=== PATIENT | female | born 1990 | race Caucasian/White ===

== ENCOUNTER 2023-07-02 21:05 | Emergency (ER) | payer OTHER, SELFPAY ==
[2023-07-02 21:05] VITALS: BP 147/85; PULSE 109; RESP 18; TEMP 36.6; O2SAT 97
--- NOTE | 2023-07-02 21:23 | ED.GENADULT ---
HPI - General Adult General Chief complaint: Psychiatric Symptoms Stated complaint: SI Time Seen by Provider: 07/02/23 21:14 History of Present Illness HPI narrative: This is a 32-year-old female presenting for suicidal ideation. Patient has history of bipolar disorder for last month and half is pending a depressive episode. She feels like she will never get out of this episode and there is no hope. Patient was at her house holding a firearm to her head when her son and mother started banging on the door. She then came to the hospital for further evaluation. Patient was last hospitalized for mental illness July last year. Patient says she has been taking her medications as instructed. patient drinks a large bottle of wine on a daily basis has admits to use today. Denies drug use. Compliant with her psychiatric medications. No physical complaints this time. Related Data Home Medications Medication Instructions Recorded Confirmed aripiprazole 15 mg tablet 15 mg PO DAILY 07/02/23 07/02/23 lamotrigine 100 mg tablet 150 mg PO BID 07/02/23 07/02/23 lisdexamfetamine 70 mg capsule 70 mg PO DAILY 07/02/23 07/02/23 (Vyvanse) lithium carbonate 150 mg capsule 150 mg PO BID 07/02/23 07/02/23 propranolol 20 mg tablet 20 mg PO DAILY 07/02/23 07/02/23 Allergies Allergy/AdvReac Type Severity Reaction Status Date / Time No Known Allergies Allergy Verified 07/02/23 21:41 [facility] Past Medical History Medical History Bipolar 1 disorder, depressed Social History Social History Substance use type: prescription drug Exam Narrative: APPEARANCE: No apparent distress. A&O x3 Head: atraumatic. EYES: EOMI, NOSE: Atraumatic NECK: Trachea midline RESPIRATORY: No increased rate of breathing CARDIOVASCULAR: RRR, ABDOMINAL: Non-distended MUSCULOSKELETAl: No obvious deformities NEURO: Alert. Moving 4/4 extremities SKIN:: Warm, dry. Normal color PSYCHIATRIC: Tearful Course Vital Signs Vital signs: Vital Signs Temperature 97.8 F 07/02/23 21:05 Pulse Rate 109 H 07/02/23 21:05 Respiratory Rate 18 07/02/23 21:05 Blood Pressure 147/85 H 07/02/23 21:05 Pulse Oximetry 97 07/02/23 21:05 Oxygen Delivery Room Air 07/02/23 21:05 Temperature 97.5 F L 07/03/23 04:35 Pulse Rate 96 07/03/23 04:35 Respiratory Rate 20 07/03/23 04:35 Blood Pressure 115/59 L 07/03/23 04:35 Pulse Oximetry 97 07/03/23 04:35 Oxygen Delivery Room Air 07/03/23 04:35 Medical Decision Making MDM Narrative Medical decision making narrative: -Course: 32-year-old female with bipolar disorder presenting for suicidal ideation. Patient was holding a gun to her head earlier. Clear and present danger order has been placed in the EMR and authorities notified. Screening psychiatric lab work has been obtained. Patient medically clear for crisis evaluation. patient has been accepted to [facility] by Dr. Markel Barajas. 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 Does not over last day she went without drinking alcohol. Uses a vape pen. Denies drug use. 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 -Independent interpretation of studies: UDS positive for amphetamines. Patient is on Vyvanse. alcohol level 22 -Discussion of Management/Consultants: Crisis team -Shared decision making / Disposition: [facility] Vital Signs Vital Signs: Vital Signs Temperature 97.8 F 07/02/23 21:05 Pulse Rate 109 H 07/02/23 21:05 Respiratory Rate 18 07/02/23 21:05 Blood Pressure 147/85 H 07/02/23 21:05 Pulse Oximetry 97 07/02/23 21:05 Oxygen Delive
[2023-07-02 21:36] LABS: Basophils Absolute Auto 0.07 K/mm3 (0.00-0.10); Basophils Percent Auto 0.6 % (0.0-1.0); Eosinophils Absolute Auto 0.29 K/mm3 (0.02-0.50); Eosinophils Percent Auto 2.5 % (1.0-6.0); Hematocrit 39.1 % (35.0-49.0); Hemoglobin 12.2 g/dL (12.0-15.0); Immature Granulocyte Absolute 0.08 K/mm3 (0.00-0.00); Immature Granulocyte Percent A 0.7 % (0.0-0.0); Lymphocytes Absolute Auto 2.54 K/mm3 (1.10-4.50); Lymphocytes Percent Auto 21.6 % (18.0-42.0); Mean Corpuscular HGB Conc 31.2 g/dL (32-36); Mean Corpuscular Volume 83.4 fL (78.0-102.0); Mean Platelet Volume 9.2 fl (9.2-11.8); Monocytes Absolute Auto 0.63 K/mm3 (0.10-0.90); Monocytes Percent Auto 5.4 % (2.0-11.0); Neutrophils Absolute Auto 8.14 K/mm3 (1.70-7.20); Neutrophils Percent Auto 69.2 % (50.0-70.0); Platelet Count Result 404 K/mm3 (150-420); Red Blood Count 4.69 M/mm3 (4.20-5.40); Red Cell Distribution Width 12.8 % (11.6-14.4); White Blood Count 11.8 K/mm3 (4.8-10.8)
[2023-07-02 21:42] LABS: Appearance Urine Clear (Clear); Bilirubin Urine Negative (Negative); Blood Urine Negative (Negative); Color Urine Light Yellow (Yellow); Glucose Urine UA Negative (Negative); Ketones Urine Negative (Negative); Leukocyte Esterase Ur Negative LEU/UL (Negative); Nitrate Urine Negative (Negative); Protein Urine Negative (Negative); Specific Grav Ur 1.015 (1.010-1.020); Urobilinogen Urine 0.2 mg/dL (0.2-1.0)
[2023-07-02 21:46] LABS: Add Urine Microscopic? NO
--- NOTE | 2023-07-02 21:47 | PC.NURSE ---
Addendum entered by Florencio Wolff RN 07/02/23 21:48: At 2114, pt changed into hospital safe scrubs and belongings placed in a locked room. All nonessential equipment removed from pt room. Original Note: 2114
[2023-07-02 21:49] LABS: Amphetamine Screen Urine Positive (Negative); Barbiturate Screen Urine Negative (Negative); Benzodiazepines Screen Urine Negative (Negative); Cannabinoid Screen Urine Negative (Negative); Cocaine Screen Urine Negative (Negative); Methadone Screen Urine Negative (Negative); Opiate Screen Urine Negative (Negative); Phencyclidine Screen Urine Negative (Negative)
[2023-07-02 22:01] LABS: Alanine Aminotransferase 52 U/L (14-59); Albumin Level 3.6 g/dL (3.4-5.0); Alkaline Phosphatase 114 U/L (46-116); Anion Gap 12 mmol/L (8-16); Aspartate Amino Transferase 34 U/L (15-37); Bilirubin,Total 0.3 mg/dL (0.00-1.00); Blood Urea Nitrogen 7 mg/dL (7-18); Calcium 8.8 mg/dL (8.5-10.1); Carbon Dioxide 25 mmol/L (21-32); Chloride 103 mmol/L (98-108); Estimated CRCL calculation 116 ml/min; Estimated Glomerular Filt Rate > 60; Ethanol 22 mg/dL (0-6); Glucose 115 mg/dL (70-99); Osmolality Calculated 289 mOsm/kg (285-295); Potassium 3.9 mmol/L (3.5-5.1); Salicylate 1.2 mg/dL (2.8-20.0); Sodium 140 mmol/L (136-145); Thyroid Stimulating Hormone 2.87 uIU/mL (0.36-3.74); Total Protein 7.5 g/dL (6.4-8.2)
[2023-07-02 22:03] LABS: Acetaminophen < 2 ug/mL (10-30)
[2023-07-02 22:14] LABS: SARS-CoV-2 RNA PCR Negative (Negative)
[2023-07-02 22:15] LABS: Influenza A QL RT-PCR Negative (Negative); Influenza B QL RT-PCR Negative (Negative); RSV RNA, RT-PCR Negative (Negative)
[2023-07-02 22:43] VITALS: BP 133/81; PULSE 98; RESP 18; TEMP 37.1; O2SAT 98
[2023-07-03 02:39] VITALS: BP 122/60; PULSE 104; RESP 20; TEMP 36.8; O2SAT 98
--- NOTE | 2023-07-03 03:16 | PC.NURSE ---
Spoke with Intake at [facility] who is requesting we add on a urine for the patient and fax the results over to them.
[2023-07-03 03:20] LABS: Pregnancy On Board Control Positive; Urine Pregnancy Test Negative
--- NOTE | 2023-07-03 04:08 | PC.NURSE ---
1618 Urine preg test results faxed to [facility]
--- NOTE | 2023-07-03 04:24 | PC.NURSE ---
Attempted to call [facility] for transport for the patient to [facility] and they are unable to transport tonight. Will try [facility]
[2023-07-03 04:35] VITALS: BP 115/59; PULSE 96; RESP 20; TEMP 36.4; O2SAT 97
[2023-07-06 17:17] LABS: Lithium <0.15 mmol/L (0.60-1.20)
== END 2023-07-03 04:54 ==
PROVIDERS: Emergency Provider Emergency Medicine; PCP Family Medicine
DX: F31.9 Bipolar disorder, unspecified (principal); R45.851 Suicidal ideations; Z20.822 Contact with and (suspected) exposure to COVID-19
CPT/HCPCS: 36415; 80053; 80178; 80307; 81003; 81025; 84443; 85025; 87637; 99285

== ENCOUNTER 2023-12-24 08:05 | Emergency (ER) | payer OTHER, SELFPAY ==
[2023-12-24 08:10] VITALS: BP 142/97; PULSE 114; RESP 20; TEMP 36.3; O2SAT 98
--- NOTE | 2023-12-24 08:30 | ED.PSYCH ---
HPI - Psych General Chief Complaint: Psychiatric Symptoms Stated Complaint: Bipolar Time Seen by Provider: 12/24/23 08:29 Source: patient and family Mode of arrival: ambulatory Limitations: no limitations History of Present Illness HPI Narrative: 33 years old white female with history of bipolar on Paxil and Vyvanse did not take her bipolar medication for a while, came to the emergency room by private car complaining of involuntary movement involving upper and lower extremity, facial muscles and mouth. Patient denies any fever, chills, nausea, vomiting any suicidal or homicidal ideation. Scheduled to see her psychiatrist tomorrow. The above symptoms started last night could not sleep Related Data Home Medications Medication Instructions Recorded Confirmed aripiprazole 15 mg tablet 15 mg PO DAILY 07/02/23 07/02/23 lamotrigine 100 mg tablet 150 mg PO BID 07/02/23 07/02/23 lisdexamfetamine 70 mg capsule 70 mg PO DAILY 07/02/23 12/24/23 (Vyvanse) lithium carbonate 150 mg capsule 150 mg PO BID 07/02/23 07/02/23 propranolol 20 mg tablet 20 mg PO DAILY 07/02/23 07/02/23 paroxetine HCl 30 mg tablet 30 mg PO HS 12/24/23 12/24/23 Allergies Allergy/AdvReac Type Severity Reaction Status Date / Time No Known Allergies Allergy Verified 12/24/23 08:19 Review of Systems Review of Systems: All systems reviewed & are unremarkable except as noted in HPI and below PMFSH Past Medical History Medical History Bipolar 1 disorder, depressed Social History Social History Substance use type: does not use Exam Narrative: General appearance: Well-developed, well-nourished, restlessness Skin: Normal color Head: Normocephalic, nontraumatic Eyes: Clear conjunctiva ENT: Oropharynx normal, ears normal, nose normal Neck: Supple, nontender Chest and respiratory: Airway patent, no respiratory distress, no accessory muscle use Heart: Regular rate/rhythm Abdomen: Soft, nontender, no organomegaly, quiet bowel sounds Vascular: Normal peripheral pulses, normal capillary refill. Musculoskeletal: him in a tree muscle movement of the upper and lower extremity, opening and closing mouth intermittently without control of, twitches face without control Neurologic: Alert and oriented ?3, PIER HAND is normal as tested, no gross motor deficit Course Consultations Consultation #1: Dr. Dumont, patient's psychiatrist who requested to asked patient to go to his clinic now Date: 12/24/23 Time: 12:46 Vital Signs Vital signs: Vital Signs Temperature 36.3 C L 12/24/23 08:10 Pulse Rate 114 H 12/24/23 08:10 Respiratory Rate 20 12/24/23 08:10 Blood Pressure 142/97 H 12/24/23 08:10 Pulse Oximetry 98 12/24/23 08:10 Oxygen Delivery Room Air 12/24/23 08:10 Temperature 36.3 C L 12/24/23 08:10 Pulse Rate 114 H 12/24/23 08:10 Respiratory Rate 20 12/24/23 08:10 Blood Pressure 142/97 H 12/24/23 08:10 Pulse Oximetry 98 12/24/23 08:10 Oxygen Delivery Room Air 12/24/23 08:10 MDM - Psych MDM Narrative Medical decision making narrative: differential diagnosis include anxiety, panic attack, major depression, tardive dyskinesia, medication side effect Patient received 1 mg of Ativan orally Patient was referred to see her psychiatrist today. Differential Diagnosis Differential diagnosis: Likely other ( as above) Medical Records Attestation: I reviewed the patient's medical records. Critical Care Time Critical Care Time Critical Care Time: No Discharge Plan Discharge Clinical Impression: Anxiety-like symptoms, Bipolar 1 disorder
[2023-12-24] MEDS: LORazepam (*CRX) 0.5 MG TABLET 1 MG PO (08:42)
== END 2023-12-24 09:20 | disposition home or self-care (01) ==
PROVIDERS: Emergency Provider Emergency Medicine; PCP Family Medicine
DX: F41.9 Anxiety disorder, unspecified (principal); F31.9 Bipolar disorder, unspecified
CPT/HCPCS: 99284; A9270

== ENCOUNTER 2024-11-20 09:19 | Outpatient (CLI) | payer OTHER, SELFPAY ==
--- OUTSIDE RECORDS SUMMARY | 2024-11-20 09:25 | XMS_ITS | Clinical Summary ---
Author Organization [facility] Address [address] [place] [address] Care Team Providers Care [employer] Observer Name Role Phone Dheeraj Lim MD Primary Care Provider [phone] Source Comments [facility],non-owned Affiliates and Associated Physician Practices is amultiple site organization consisting of ambulatory clinics and hospital sitesin [place], [place], [place] and [place]. This disclosure is being madepursuant to the Care Everywhere program and may not contain all information available regarding this patient. Last updated 18.[employer] (Inspect Manager) [facility] Allergies No known active allergies Medications * This document contains information received from the source organization and may not represent a complete record from that organization. * Be aware that medications may not be up to date on this document. Alwaysverify current medications with the patient. No known medications Active Problems Problem Noted Date Diagnosed Date Bipolar affective disorder, current episode obinna re 07/26/2022 Suicidal ideation 07/25/2022 Social History Tobacco Use Types Packs/Day Years Used Date Smoking Tobacco: Never Smokeless Tobacco: Never Tobacco Cessation:Counseling Given: Not Answered Alcohol Use Standard Drinks/Week Comments Yes 1 (1 standard drink = 0.6 oz pur e alcohol) glass of wine a month AUDIT-C Answer Date Recorded Q1: How often do you have a drink containing alc ohol? Monthly or less 07/25/2022 Q2: How many drinks containi ng alcohol do you have on a typical day when you are drinking? 1 or 2 07/25/2022 Q3: How often do you have si x or more drinks on one occasion? Never 07/25/2022 Overall Financial Resource Strain (CARDIA) Answe r Date Recorded How hard is it for you to pa y for the very basics like food, housing, medical care, and heating? Not hard at all 07/25/2022 [facility] [place] [facility] - Occupational Stress Questionnaire Answer Date Recorded Do you feel stress - tense, restless, nervous, or anxious, or unable to sleep at night because your mind is troubled all the time - these days? Rather much 07/25/2022 Hunger Vital Sign Answer Date Recorded Within the past 12 months, y ou worried that your food would run out before you got the money to buy more. Never true 07/26/19 23 Within the past 12 months, t he food you bought just didn't last and you didn't have money to get more. Never true 07/25/2022 PRAPARE - Transportation Answer Date Re corded In the past 12 months, has l ack of transportation kept you from medical appointments or from getting medications? No 07/14 In the past 12 months, has l ack of transportation kept you from meetings, work, or from getting things needed for daily living? No 07/25/2022 Housing Stability Vital Sign Answer Mike e Recorded In the last 12 months, was t here a time when you were not able to pay the mortgage or rent on time? No 07/25/2022 In the last 12 months, how many places have you lived? 1 07/25/2022 In the last 12 months, was t here a time when you did not have a steady place to sleep or slept in a fdc (including now)? No 07/25/2022 Comments No Sex and Gender Information Value Date Recorded Sex Assigned at Not on file Legal Sex Female 8:24 AM [employer] Gender Identity Not on file Sexual Orientation Not on file Last Filed Vital Signs Vital Sign Reading Time Taken Comments Blood Pressure 121/67 07/29/2022 7:31 AM CDT Pulse 85 07/29/2022 7:31 AM CDT Temperature 37 C (98.6 F) 07/29/2022 7:31 AM CDT Respiratory Rate 18 07/29/2022 7:3 1 AM CDT Oxygen Saturation 99% 07/29/2022 7:31 AM CDT Inhaled Oxygen Concentration - - Weight 127.1 kg (280 lb 3.3 oz) 023 10:00 AM CDT Height 167 cm (5' 5.75) 07/25/2022 10: 00 AM CDT Body Mass Index 45.57 07/25/2022 10:00 AM CDT Plan of Treatment Health Maintenance Due Date Last Done Comments HIV SCREENING 11/25/2007 HEPATITIS C SCREENING 11/20/2010 DTAP/TDAP/TD VACCINES (1 - Tdap) 11/25/2011 HEPATITIS B VACCINE (1 of 3 - 19+ 3-dose series) 11/25/2011 PAP SMEAR 2013 HPV VACCINE (1 - 3-dose SCDM series) 11/25/2019 COVID-19 VACCINE (1 - 2023-2 5 season) 2023 INFLUENZA VACCINE (#1) 2024 ZOSTER VACCINE (1 of 2) 2042 HIB VACCINE Aged Out No longer eligi ble based on patient's age to complete this topic MENINGOCOCCAL (Group B) VACC INE SHARED DECISION-MAKING Aged Out No longer eligibl e based on patient's age to complete this topic MENINGOCOCCAL GROUPS A/C/Y/W VACCINE Aged Out No longer eligible b ased on patient's age to complete this topic PNEUMOCOCCAL VACCINE Aged Out No long er eligible based on patient's age to complete this topic Insurance [employer] Advance Directives * Full Code (Latest Code Status on File) Date Activated Date Inactivated Comments 07/25/2022 10:24 AM 07/29/2022 12:07 PM Care Teams [employer] Observer Relationship Specialty Start Date End Date Dheeraj Lim MD [address] [place] [phone] PCP - General Family Medicine 07/14/22
--- OUTSIDE RECORDS SUMMARY | 2024-11-20 09:26 | XMS_ITS | Patient Health Record ---
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 Role Phone Dheeraj Lim MD Primary Care Provider Tommy Capone Unavailable [phone] Kevan Tapia Unavailable [phone] Allergies No Known Allergies Results Component Value Reference Range Notes UDT Reviewed date:09/22/2024 12:59:34 PM Interpretation: Performing Lab: Notes/Report: THC N 0 - 50 ng/ml Cocaine N 0 - 300 ng/ml Amphetamine P 0 - 1000 ng/ml Buprenorphine (BUP) N 0 - 10 ng/ml Secobarbital (Bar) N 0 - 300 ng/ml Oxazepam (BZO) N 0 - 300 ng/ml 5-ankdfywryz-9,5-brtgvriz-1,3-diphenylpyrrolidine (DASHAWN P) N 0 - 300 ng/ml Methamphetamine (MET) N 0 - 1000 ng/ml Methylenedioxymethamphetamine (MDMA) N 0 - 500 ng/ml Morphine (MOP 300/[id number]) N 0 - 300 ng/ml Methadone (MTD) N 0 - 300 ng/ml Phencyclidine (PCP) N 0 - 25 ng/ml Nortriptyline (TCA) N 0 - 1000 ng/ml Oxycodone N 0 - 300 ng/ml x N 0 - 300 ng/ml UDT Reviewed date:07/22/2024 04:07:52 PM Interpretation: Performing Lab: Notes/Report: THC N 0 - 50 ng/ml Cocaine N 0 - 300 ng/ml Amphetamine P 0 - 1000 ng/ml Buprenorphine (BUP) N 0 - 10 ng/ml Secobarbital (Bar) N 0 - 300 ng/ml Oxazepam (BZO) N 0 - 300 ng/ml 4-buiswcbqkh-7,9-slqglmxh-3,3-diphenylpyrrolidine (DASHAWN P) N 0 - 300 ng/ml Methamphetamine (MET) N 0 - 1000 ng/ml Methylenedioxymethamphetamine (MDMA) N 0 - 500 ng/ml Morphine (MOP 300/[id number]) N 0 - 300 ng/ml Methadone (MTD) N 0 - 300 ng/ml Phencyclidine (PCP) N 0 - 25 ng/ml Nortriptyline (TCA) N 0 - 1000 ng/ml Oxycodone N 0 - 300 ng/ml UDT Reviewed date:06/08/2024 04:10:36 PM Interpretation: Performing Lab: Notes/Report: THC N 0 - 50 ng/ml Cocaine N 0 - 300 ng/ml Amphetamine N 0 - 1000 ng/ml Buprenorphine (BUP) N 0 - 10 ng/ml Secobarbital (Bar) N 0 - 300 ng/ml Oxazepam (BZO) N 0 - 300 ng/ml 7-mkrhulhwii-9,4-kymqzwjh-9,3-diphenylpyrrolidine (DASHAWN P) N 0 - 300 ng/ml Methamphetamine (MET) N 0 - 1000 ng/ml Methylenedioxymethamphetamine (MDMA) N 0 - 500 ng/ml Morphine (MOP 300/[id number]) N 0 - 300 ng/ml Methadone (MTD) N 0 - 300 ng/ml Phencyclidine (PCP) N 0 - 25 ng/ml Nortriptyline (TCA) N 0 - 1000 ng/ml Oxycodone N 0 - 300 ng/ml x N 0 - 300 ng/ml Reason For Referral No Information Medications Medication SIG (Take, Route, Frequency, Duration) Notes Start Date End Date Status LORazepam 0.5 MG 1 tablet Oral Once a day; Duration: 30 days As needed 11/12/2024 Active traZODone HCl 50 MG 1 tablet at bedtime Oral Once a day; Duration: 30 days As needed Active Vraylar 6 mg 1 capsule Orally Once a day; Duration: 30 days Active Lisdexamfetamine Dimesylate 70 MG 1 capsule in the morning Orally Once a day; Duration: 30 days Active lamoTRIgine 25 MG 2 tablets Orally once a day; Duration: 90 days Active [place] Carbonate ER 300 MG 2 tablets at bedtime Orally Once a day; Duration: 30 days dose increase Active medroxyPROGESTERone Acetate 150 MG/ML Intramuscular 08/21/2023 Active lamoTRIgine 25 MG 2 tablets Orally once a day; Duration: 30 days Not-Taking Immunizations Vaccine Route Administration Date Status Comme nts Influenza, seasonal, injecta ble, preservative free, 3 yrs and above Unknown 01/13/2011 Administered Meningococcal MCV4P Unknown 12/17/2008 Administered MMR Unknown 04/27/2015 Administered Moderna Covid-19 Vaccine 1st dose Unknown 07/01/2020 Ad ministered Moderna Covid-19 Vaccine 1st dose Unknown 07/29/2020 Ad ministered Novel [id number], preservative free Unknown 04/27/2015 Administered Social History Tobacco Use: Social History Observation Description Date Details (start date - stop date) Unknown Sex Assigned At : Social History Observation Description Sex Assigned At Female Tobacco Control (Standard) Question Answer Notes Tobacco use: Uses tobacco in other forms AUDIT-C (Standard) Question Answer Notes Points 3 Interpretation Positive Did you have a drink contain ing alcohol in the past year? Yes How often did you have six o r more drinks on one occasion in the past year? Less than monthly (1 point) How many drinks did you have on a typical day when you were drinking in the past year? 1 or 2 drinks (0 point) How often did you have a dri nk containing alcohol in the past year? 2 to 4 times a month (2 points) Problems Problem Type SNOMED Code ICD Code Onset Dates Problem Status W/U Status Risk Notes Problem Generalized anxiety disorder (28985564) Generalized anxiety disorder (F41.1) Active confirmed Problem Insomnia disorder related to another mental disorder (51816727) Insomnia due to other mental disorder (F51.05) 4 Active confirmed Problem Binge eating disorder (242803744) Binge eating disorder (F50.81) 4 Active confirmed Problem Panic disorder (108312971) Panic disorder [episodic paroxysmal anxiety] without agoraphobia (F41.0) Active confirmed Problem Mixed bipolar I disorder (48572779) Bipolar affective disorder, mixed (F31.60) Active confirmed Problem Feeling suicidal (728393026) Passive suicidal ideations (R45.851) Active confirmed Problem Non-compliance (507306661) Non-compliance (Z91.199) Active confirmed Problem Bipolar affective disorder, currently manic, moderate (241894488) Bipolar affective disorder, currently manic, moderate (F31.12) Active confirmed Problem Binge eating disorder, mild (F50.810) Active confirmed Vital Signs Heart Rate 110 /min 11/12/2024 Height-cm 167.64 cm 11/12/2024 Blood pressure diastolic 84 mm Hg 11/12/2024 Weight-kg 152.41 kg 11/12/2024 Height 66.00 in 11/12/2024 Blood pressure systolic 134 mm Hg 11/12/2024 Weight 336 lbs 11/12/2024 BMI 54.23 kg/m2 11/12/2024 Encounters Encounter Location Date Provider Diagnosis [facility], [facility] [address] [facility] [address] [place] [address] 12/24/2023 Kevan Clubb Insomnia due to othe r mental disorder F51.05 ; Bipolar affective disorder, currently manic, moderate F31.12 and Non-compliance Z91.199 [facility] [address] [facility] [address] [place] [address] 12/25/2023 Tommy Dumont Panic disorder [episodic paroxysmal anxiety] without agoraphobia F41.0 ; Generalized anxiety disorder F41.1 ; Bipolar affective disorder, currently manic, moderate F31.12 and Insomnia due to other mental disorder F51.05 [facility] [address] [address] 01/16/2024 Tommy Dumont Panic disorder [episodic paroxysmal anxiety] without agoraphobia F41.0 ; Generalized anxiety disorder F41.1 ; Insomnia due to other mental disorder F51.05 and Bipolar affective disorder, mixed F31.60 [facility] [address] [place] [address] 02/17/2024 Tommy Dumont Panic disorder [episodic paroxysmal anxiety] without agoraphobia F41.0 ; Generalized anxiety disorder F41.1 ; Insomnia due to other mental disorder F51.05 ; Bipolar affective disorder, mixed F31.60 and Binge eating disorder, mild F50.810 [facility] [address] [facility] [address] [place] [address] 03/17/2024 Tommy Dumont Panic disorder [episodic paroxysmal anxiety] without agoraphobia F41.0 ; Generalized anxiety disorder F41.1 ; Insomnia due to other mental disorder F51.05 ; Bipolar affective disorder, mixed F31.60 and Binge eating disorder, mild F50.810 [facility] [address] [place] [address] 04/14/2024 Tommy Dumont Panic disorder [episodic paroxysmal anxiety] without agoraphobia F41.0 ; Generalized anxiety disorder F41.1 ; Insomnia due to other mental disorder F51.05 ; Bipolar affective disorder, mixed F31.60 and Binge eating disorder, mild F50.810 [facility], [facility] [address] [place] [address] 06/01/2024 Kevan Clubb Bipolar affective disorder, mixed F31.60 ; Passive suicidal ideations R45.851 ; Panic disorder [episodic paroxysmal anxiety] without agoraphobia F41.0 ; Generalized anxiety disorder F41.1 ; Insomnia due to other mental disorder F51.05 and Binge eating disorder, mild F50.810 [facility] [address] [place] [address] 06/08/2024 Tommy Dumont Panic disorder [episodic paroxysmal anxiety] without agoraphobia F41.0 ; Generalized anxiety disorder F41.1 ; Insomnia due to other mental disorder F51.05 ; Bipolar affective disorder, mixed F31.60 and Binge eating disorder, mild F50.810 [facility] [address] [place] [address] 07/21/2024 Tommy Dumont Bipolar affective disorder, mixed F31.60 ; Binge eating disorder, mild F50.810 ; Panic disorder [episodic paroxysmal anxiety] without agoraphobia F41.0 ; Generalized anxiety disorder F41.1 ; Insomnia due to other mental disorder F51.05 ; Encounter for screening for depression Z13.31 and Encounter for screening for cardiovascular disorders Z13.6 [facility] [address] [place] [address] 08/20/2024 Tommy Engela Negative depression screening Z13.31 ; Bipolar affective disorder, mixed F31.60 ; Binge eating disorder, mild F50.810 ; Panic disorder [episodic paroxysmal anxiety] without agoraphobia F41.0 ; Generalized anxiety disorder F41.1 ; Insomnia due to other mental disorder F51.05 ; Nicotine use Z72.0 ; Encounter for screening for cardiovascular disorders Z13.6 and Encounter for screening for depression Z13.31 [facility] [address] [place] [address] 09/21/2024 Tommy Dumont Encounter for screen ing for depression Z13.31 ; Nicotine use Z72.0 ; Encounter for screening for cardiovascular disorders Z13.6 ; Bipolar affective disorder, mixed F31.60 ; Negative depression screening Z13.31 ; Binge eating disorder, mild F50.810 ; Panic disorder [episodic paroxysmal anxiety] without agoraphobia F41.0 ; Generalized anxiety disorder F41.1 and Insomnia due to other mental disorder F51.05 [facility] [address] [facility] [address] [place] [address] 10/22/2024 Tommy Dumont Bipolar affective disorder, mixed F31.60 ; Nicotine use Z72.0 ; Binge eating disorder, mild F50.810 ; Panic disorder [episodic paroxysmal anxiety] without agoraphobia F41.0 ; Generalized anxiety disorder F41.1 and Insomnia due to other mental disorder F51.05 [facility] [address] [facility] [address] [place] [address] 11/12/2024 Tommy Dumont Bipolar affective disorder, mixed F31.60 ; Nicotine use Z72.0 ; Binge eating disorder, mild F50.810 ; Panic disorder [episodic paroxysmal anxiety] without agoraphobia F41.0 ; Generalized anxiety disorder F41.1 and Insomnia due to other mental disorder F51.05 [facility] [address] [place] [address] 12/24/2023 Tommy Dumont [facility], [facility] [address] [place] [address] 06/01/2024 Kevan Regina [facility] [address] [place] [address] 12/16/2023 Tommy Dumont Binge eating disorde r F50.81 [facility], [place] [address] [place] [address] 01/22/2024 Tommy Dumont [facility], [facility] [address] [place] [address] 02/04/2024 Tommy Dumont Bipolar affective disorder, mixed F31.60 [facility], [place] [address] [facility] [address] [place] [address] 03/15/2024 Tommy Dumont [facility], [facility] [address] [place] [address] 04/11/2024 Tommy Dumont Binge eating disorde r, mild F50.810 [facility], [facility] [address] [place] [address] 05/05/2024 Tommy Dumont Binge eating disorde r, mild F50.810 [facility], [place] [address] [place] [address] 06/29/2024 Tommy Dumont Binge eating disorde r, mild F50.810 [facility], [place] [address] [place] [address] 07/30/2024 Tommy Dumont Binge eating disorde r, mild F50.810 [facility], [place] [address] [place] [address] 08/31/2024 Tommy Dumont Binge eating disorde r, mild F50.810 [facility], [place] [address] [place] [address] 09/16/2024 Tommy Dumont Bipolar affective disorder, mixed F31.60 [facility], [place] [address] [place] [address] 09/24/2024 Tommy Dumont Binge eating disorde r, mild F50.810 Assessments Encounter Date Diagnosis (ICD Code) Assessment Notes Treatment Notes Treatment Clinical Notes Section Notes 12/16/2023 Binge eating disorder (ICD-10 - F50.81) 12/24/2023 Insomnia due to other mental disorder (ICD-10 - F51.05) 1. Bipolar disorder, currently in manic phase - Continue Paxil as prescribed - Discontinue Vyvanse temporarily due to current manic state - Initiate Vraylar; patient provided with a sample and instructed to take one dose immediately, then continue with one dose daily - Encourage patient to roll picker Vraylar prescription from the pharmacy - Patient to follow up with [facility] tomorrow as scheduled - Patient reports manic symptoms for about 1.5 weeks, worsening in the last 3 days - Patient went to ER recently due to concerns about psychosis/ increased involuntary movements. 2. Insomnia - Instruct patient to take lorazepam (Ativan) for anxiety and sleep when they get home - Monitor response to Vraylar, as it may help with sleep regulation - Patient reports not sleeping for about 3 days 3. Possible tardive dyskinesia/EPS (ruled out during the visit) - Reassure patient that current symptoms are likely due to chirag, not tardive dyskinesia/EPS - Monitor for any future signs of tardive dyskinesia, especially when taking antipsychotic medications - Patient reports involuntary mouth movements and fidgeting 4. No suicidal ideation or self-harm - Continue to assess for any changes in mood or thoughts of self-harm during follow-up appointments 5. No hallucinations - Continue to monitor for any changes in mental status or the presence of hallucinations during follow-up appointments 6. Medication history - Patient previously on Abilify, discontinued in July - Patient tried a sample of Latuda but did not continue due to cost - Currently on Paxil and Vyvanse - Previously on Lamotrigine, discontinued during a psych mc stay 7. medication non-compliance - patient reports she did not roll picker Vraylar 1.5 mg po daily prescription from the pharmacy - Ensure mother assists the patient in medication compliance - obtain and utilize a pill organizer - Utilize a phone alarm to take medications as prescribed. 12/24/2023 Bipolar affective disorder, currently manic, moderate (ICD-10 - F31.12) 1. Bipolar disorder, currently in manic phase - Continue Paxil as prescribed - Discontinue Vyvanse temporarily due to current manic state - Initiate Vraylar; patient provided with a sample and instructed to take one dose immediately, then continue with one dose daily - Encourage patient to roll picker Vraylar prescription from the pharmacy - Patient to follow up with [facility] tomorrow as scheduled - Patient reports manic symptoms for about 1.5 weeks, worsening in the last 3 days - Patient went to ER recently due to concerns about psychosis/ increased involuntary movements. 2. Insomnia - Instruct patient to take lorazepam (Ativan) for anxiety and sleep when they get home - Monitor response to Vraylar, as it may help with sleep regulation - Patient reports not sleeping for about 3 days 3. Possible tardive dyskinesia/EPS (ruled out during the visit) - Reassure patient that current symptoms are likely due to chirag, not tardive dyskinesia/EPS - Monitor for any future signs of tardive dyskinesia, especially when taking antipsychotic medications - Patient reports involuntary mouth movements and fidgeting 4. No suicidal ideation or self-harm - Continue to assess for any changes in mood or thoughts of self-harm during follow-up appointments 5. No hallucinations - Continue to monitor for any changes in mental status or the presence of hallucinations during follow-up appointments 6. Medication history - Patient previously on Abilify, discontinued in July - Patient tried a sample of Latuda but did not continue due to cost - Currently on Paxil and Vyvanse - Previously on Lamotrigine, discontinued during a psych mc stay 7. medication non-compliance - patient reports she did not roll picker Vraylar 1.5 mg po daily prescription from the pharmacy - Ensure mother assists the patient in medication compliance - obtain and utilize a pill organizer - Utilize a phone alarm to take medications as prescribed. 12/25/2023 Generalized anxiety disorder (ICD-10 - F41.1) 1. Involuntary muscle movements and possible tardive dyskinesia - The patient presents with involuntary muscle movements, including opening and closing her mouth, head movements, and tremors in the upper and lower extremities. These symptoms may be indicative of tardive dyskinesia. Plan: - Recommend the patient to visit the walk-in clinic for further evaluation and management. - Consider referral to a neurologist if symptoms persist or worsen. 2. Bipolar disorder - The patient has a history of bipolar disorder and was previously on Vraylar, which she has discontinued due to cost or insurance issues. She is currently only taking Paxil and Vyvanse. Plan: - Encourage the patient to visit the walk-in clinic to discuss alternative medications for bipolar disorder management. - Consider restarting Vraylar or initiating another mood stabilizer, taking into account the patient's insurance and financial situation. 3. Medication management - The patient is currently taking Paxil and Vyvanse. It is unclear if these medications are contributing to her involuntary muscle movements or if they are adequately managing her bipolar disorder. Plan: - Reevaluate the patient's medication regimen during her walk-in clinic visit. - Consider adjusting dosages or changing medications as needed to optimize her mental health and minimize side effects. 4. Suicidal and homicidal ideation - The patient has a history of suicide attempts and psychiatric hospitalization s but denies any current suicidal or homicidal ideation. Plan: 12/25/2023 Panic disorder [episodic paroxysmal anxiety] without agoraphobia (ICD-10 - F41.0) lorazepam 0.5mg daily prn 1. Involuntary muscle movements and possible tardive dyskinesia - The patient presents with involuntary muscle movements, including opening and closing her mouth, head movements, and tremors in the upper and lower extremities. These symptoms may be indicative of tardive dyskinesia. Plan: - Recommend the patient to visit the walk-in clinic for further evaluation and management. - Consider referral to a neurologist if symptoms persist or worsen. 2. Bipolar disorder - The patient has a history of bipolar disorder and was previously on Vraylar, which she has discontinued due to cost or insurance issues. She is currently only taking Paxil and Vyvanse. Plan: - Encourage the patient to visit the walk-in clinic to discuss alternative medications for bipolar disorder management. - Consider restarting Vraylar or initiating another mood stabilizer, taking into account the patient's insurance and financial situation. 3. Medication management - The patient is currently taking Paxil and Vyvanse. It is unclear if these medications are contributing to her involuntary muscle movements or if they are adequately managing her bipolar disorder. Plan: - Reevaluate the patient's medication regimen during her walk-in clinic visit. - Consider adjusting dosages or changing medications as needed to optimize her mental health and minimize side effects. 4. Suicidal and homicidal ideation - The patient has a history of suicide attempts and psychiatric hospitalization s but denies any current suicidal or homicidal ideation. Plan: 01/16/2024 Generalized anxiety disorder (ICD-10 - F41.1) 1. Bipolar Disorder - Mixed Episodes - Patient reports experiencing mixed symptoms, including racing thoughts, irritability, and sleep disturbances. Vraylar has shown improvement in symptoms. Plan: - Increase Vraylar from 1.5 mg to 3 mg daily. - Monitor patient's response to the increased dosage and adjust as needed during follow-up visits. 2. Paxil Withdrawal - Patient reports experiencing brain zaps, nausea, vomiting, diarrhea, and increased depression after weaning off Paxil. Plan: - Continue tapering Paxil slowly to minimize withdrawal symptoms. - Monitor patient's progress and adjust the tapering schedule as needed during follow-up visits. 3. Insomnia - Patient reports difficulty sleeping despite taking trazodone and lorazepam. Plan: - Refill trazodone prescription for bedtime use. - Encourage patient to maintain a consistent sleep schedule and practice good sleep hygiene. - Reassess sleep issues during follow-up visits and adjust treatment as needed. 4. Panic Disorder - Patient reports using lorazepam to help with racing thoughts and anxiety. Plan: - Refill lorazepam prescription (0.5 mg daily as needed). - Encourage patient to utilize non-pharmacolog ical coping strategies for anxiety, such as deep breathing exercises and mindfulness techniques. - Monitor patient's anxiety levels and adjust treatment as needed during follow-up visits. 5. Binge Eating Disorder - Patient is discontinuing Vyvanse due to cost and plans to manage binge eating through lifestyle changes. Plan: - Encourage patient to engage in regular physical activity, such as walking, and focus on self-improvemen t. - Monitor patient's progress in managing binge eating during follow-up visits and consider alternative treatment options if necessary. Follow-up: - Schedule a follow-up appointment in three weeks to monitor patient's progress and adjust treatment plans as needed. 01/16/2024 Panic disorder [episodic paroxysmal anxiety] without agoraphobia (ICD-10 - F41.0) lorazepam 0.5mg daily prn 1. Bipolar Disorder - Mixed Episodes - Patient reports experiencing mixed symptoms, including racing thoughts, irritability, and sleep disturbances. Vraylar has shown improvement in symptoms. Plan: - Increase Vraylar from 1.5 mg to 3 mg daily. - Monitor patient's response to the increased dosage and adjust as needed during follow-up visits. 2. Paxil Withdrawal - Patient reports experiencing brain zaps, nausea, vomiting, diarrhea, and increased depression after weaning off Paxil. Plan: - Continue tapering Paxil slowly to minimize withdrawal symptoms. - Monitor patient's progress and adjust the tapering schedule as needed during follow-up visits. 3. Insomnia - Patient reports difficulty sleeping despite taking trazodone and lorazepam. Plan: - Refill trazodone prescription for bedtime use. - Encourage patient to maintain a consistent sleep schedule and practice good sleep hygiene. - Reassess sleep issues during follow-up visits and adjust treatment as needed. 4. Panic Disorder - Patient reports using lorazepam to help with racing thoughts and anxiety. Plan: - Refill lorazepam prescription (0.5 mg daily as needed). - Encourage patient to utilize non-pharmacolog ical coping strategies for anxiety, such as deep breathing exercises and mindfulness techniques. - Monitor patient's anxiety levels and adjust treatment as needed during follow-up visits. 5. Binge Eating Disorder - Patient is discontinuing Vyvanse due to cost and plans to manage binge eating through lifestyle changes. Plan: - Encourage patient to engage in regular physical activity, such as walking, and focus on self-improvemen t. - Monitor patient's progress in managing binge eating during follow-up visits and consider alternative treatment options if necessary. Follow-up: - Schedule a follow-up appointment in three weeks to monitor patient's progress and adjust treatment plans as needed. 02/04/2024 Bipolar affective disorder, mixed (ICD-10 - F31.60) 02/17/2024 Generalized anxiety disorder (ICD-10 - F41.1) 1. Bipolar disorder: - Patient reports improvement with Vraylar 3 mg, with the manic symptoms subsiding but still experiencing depression and anger. - Plan: Continue Vraylar 3 mg and monitor for further improvement. Schedule a follow-up appointment in 3 weeks to reassess the patient's response to the medication. 2. Anxiety: - Patient is currently taking lorazepam as needed. - Plan: Provide a refill for lorazepam and continue to monitor the patient's anxiety levels during follow-up appointments. 3. Insomnia: - Patient reports sleeping well in the past few nights and has been taking trazodone. - Plan: Encourage the patient to continue taking trazodone as needed for sleep and monitor for any changes in sleep patterns during follow-up appointments. 4. Attention deficit hyperactivity disorder (ADHD): - Patient was previously on Vyvanse 70 mg. - Plan: Resume Vyvanse 70 mg and monitor for any changes in the patient's ADHD symptoms. Check with [facility] for potential coverage of the medication. 5. Medication management: - Patient has switched to [facility] for medication pick-up and coverage. - Plan: Update the patient's pharmacy information to [facility] and ensure all prescriptions are sent to the correct pharmacy. Monitor the patient's medication adherence during follow-up appointments. 02/17/2024 Panic disorder [episodic paroxysmal anxiety] without agoraphobia (ICD-10 - F41.0) lorazepam 0.5mg daily prn 1. Bipolar disorder: - Patient reports improvement with Vraylar 3 mg, with the manic symptoms subsiding but still experiencing depression and anger. - Plan: Continue Vraylar 3 mg and monitor for further improvement. Schedule a follow-up appointment in 3 weeks to reassess the patient's response to the medication. 2. Anxiety: - Patient is currently taking lorazepam as needed. - Plan: Provide a refill for lorazepam and continue to monitor the patient's anxiety levels during follow-up appointments. 3. Insomnia: - Patient reports sleeping well in the past few nights and has been taking trazodone. - Plan: Encourage the patient to continue taking trazodone as needed for sleep and monitor for any changes in sleep patterns during follow-up appointments. 4. Attention deficit hyperactivity disorder (ADHD): - Patient was previously on Vyvanse 70 mg. - Plan: Resume Vyvanse 70 mg and monitor for any changes in the patient's ADHD symptoms. Check with [facility] for potential coverage of the medication. 5. Medication management: - Patient has switched to [facility] for medication pick-up and coverage. - Plan: Update the patient's pharmacy information to [facility] and ensure all prescriptions are sent to the correct pharmacy. Monitor the patient's medication adherence during follow-up appointments. 03/17/2024 Panic disorder [episodic paroxysmal anxiety] without agoraphobia (ICD-10 - F41.0) lorazepam 0.5mg daily prn 1. Bipolar Disorder: - Patient reports improvement with Vraylar 3 mg, but still experiences depressive symptoms and anxiety. No manic symptoms reported. - Plan: Increase Vraylar to 4.5 mg daily. Provide samples of 1.5 mg to supplement the current 3 mg supply until the new prescription is filled. Monitor for side effects and mood changes. 2. Insomnia: - Patient reports difficulty falling asleep and relies on trazodone for sleep. - Plan: Continue trazodone as needed for sleep. Refill prescription. Monitor sleep patterns and adjust medication as necessary. 3. Anxiety: - Patient is using lorazepam as needed for anxiety. - Plan: Continue lorazepam as needed. Monitor anxiety levels and adjust medication if necessary. 4. ADHD and Binge Eating Disorder: - Patient is taking lisdexamfetamin e (Vyvanse) for ADHD and binge eating disorder, reporting good results. - Plan: Continue lisdexamfetamin e. Refill prescription with the generic version to reduce cost. Monitor for changes in ADHD symptoms and binge eating behaviors. 5. Elevated Liver Enzymes: - Patient has a history of elevated liver enzymes and hep C antibodies. - Plan: Monitor liver enzyme levels through blood work. Follow up on hep C antibody status and consider further evaluation if necessary. 6. Medication Timing: - Patient inquires about the best time to take Vraylar. - Plan: Advise the patient to take Vraylar earlier in the day or in the morning if it causes activation. Adjust the timing based on the patient's response to the medication. 04/11/2024 Binge eating disorder, mild (ICD-10 - F50.810) 04/14/2024 Panic disorder [episodic paroxysmal anxiety] without agoraphobia (ICD-10 - F41.0) lorazepam 0.5mg daily prn 1. Bipolar Disorder: - Patient reports lingering depression and increased anxiety in the past 2 weeks. - Currently on Vraylar 4.5 mg and has a history of quick responses to antidepressants and chirag symptoms. - Previously tried lamotrigine with some good results. Plan: - Do not increase Vraylar dosage. - Restart lamotrigine: 25 mg once a day for 2 weeks, then 50 mg once a day for 2 weeks. - Schedule follow-up appointment in 1 month to assess response to lamotrigine. 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 2. Anxiety: - Patient reports increased anxiety in the past 2 weeks, which may be related to chirag. - Currently taking lorazepam as needed for anxiety. Plan: - Continue lorazepam as needed for anxiety. - Monitor anxiety levels during the follow-up appointment in 1 month. 3. Sleep: - Patient reports good sleep quality but has experienced difficulty falling asleep in the past 2 weeks. - Has not been needing trazodone recently. Plan: - Continue to monitor sleep quality during the follow-up appointment in 1 month. 4. Patient interest in electromagnetic therapies: - Patient inquired about electromagnetic therapies for bipolar disorder. Plan: - Educate patient that electromagnetic therapies are currently FDA-approved only for major depressive disorder and not covered by insurance for bipolar disorder. Follow-up: - Schedule a follow-up appointment in 1 month to assess patient's response to lamotrigine, monitor anxiety levels, and evaluate sleep quality. 05/05/2024 Binge eating disorder, mild (ICD-10 - F50.810) 06/01/2024 Bipolar affective disorder, mixed (ICD-10 - F31.60) If you are planning on becoming , notify your health care provider so that he/she can best manage your medications. People living with bipolar disorder who wish to become face important decisions. It is important to discuss the risks and benefits of treatment with your doctor and caregivers. [place] has been associated with an increased risk of Ebstein's anomaly, a heart valve defect. Even though data suggest that the risk of Ebstein's anomaly from first trimester use of lithium is very low, an ultrasound of the heart is recommended at 16 to 20 weeks of gestation. [place] levels should be monitored monthly in early and weekly near delivery. Do not stop taking lithium without first speaking to your health care provider. Discontinuing mood stabilizer medications during has been associated with a significant increase in symptom relapse. If an overdose occurs call your doctor or 911. You may need urgent medical care. You may also contact the poison control center at . A specific treatment to reverse the effects of lithium does not exist, but there are treatments to decrease the effects of the medication. Only a doctor can determine if you require treatment. Avoid drinking alcohol or using illegal drugs while you are taking lithium. They may decrease the benefits (e.g., worsen your condition) and increase adverse effects (e.g., sedation) of the medication. Avoid low sodium diets and dehydration because this can increase the risk of lithium toxicity. Avoid over the counter and prescription pain medications that contain nonsteroidal anti-inflammatory medications (NSAIDS) such as ibuprofen (Motrin, Advil) or naproxen (Aleve, Naprosyn) because these medications can increase the risk of toxicity from lithium. Avoid excessive intake of caffeinated beverages, such as coffee, tea, cola or energy drinks, since these may decrease levels of lithium and decrease effectiveness of the medication. Discontinuing caffeine use may increase lithium levels. Consult your health care provider before reducing or stopping caffeine use. What are the possible side effects of lithium? Common side effects Headache Nausea or vomiting Diarrhea Dizziness or drowsiness Changes in appetite Hand tremors Dry mouth Increased thirst Increased urination Thinning of hair or hair loss Acne-like rash Rare/Serious side effects Signs of lithium toxicity include severe nausea and vomiting, severe hand tremors, confusion, vision changes, and unsteadiness while standing or walking. These symptoms need to be addressed immediately with a medical doctor to ensure your lithium level is not dangerously high. In rare cases, lithium may lead to a reversible condition known as diabetes insipidus. If this occurs you would notice a significant increase in thirst and how much fluid you drink and how much you urinate. Talk to your doctor if you notice you are urinating more frequently than usual. Are There Any Risks For Taking [place] For Long Periods Of Time? Hypothyroidism (low levels of thyroid hormone) may occur with long-term lithium use. Rare kidney problems have been associated with long-term use of lithium. The risk increases with high levels of lithium. Your doctor will monitor your kidney function at routine check-ups to ensure this does not occur. Summary of Black Box Warnings [place] Toxicity [place] toxicity is closely related to lithium blood levels and can occur at doses close to therapeutic levels; lithium levels should be monitored closely when starting the medication or if individuals experience side effects of the medication. Lamotrigine Lamotrigine has a serious rash requiring hospitalization and discontinue treatment including Danny Pedrito syndrome rare case of toxic epidermal necrolysis and cache related deaths. Incidence with adjunct of epilepsy treatment 0.8% in 2 to 16 years old and 0.3% in adults, bipolar and other mood disorders incidence 0.8% this initial monotherapy and 0.13% as adjunctive treatment. Other risk factor may include concomitant use of valproate acid derivative or exceeding initial lamotrigine does or does as clinician recommendation; most life-threatening rash of occurring first 2 to 8 weeks of treatment with isolated cases after prolonged treatment; though benign may occur, discontinue treatment at first sign of rash unless clearly not a drug related; TC treatment may not prevent trash from becoming life-threatening or permanently disabling or disfiguring. Comment reaction include, nausea/vomiting, dizziness/vertigo , visual disturbances, somnolence, ataxia, pruritus/rash, pharyngitis, headache, rhinitis, diarrhea, fever, asthenia, insomnia, tremor, abdominal pain, cough, accidental injury, constipation, dysmenorrhea, incoordination, anxiety, seizures, irritability, anorexia, xerostomia, and photosensitivity. Serious reactions include: Rash, severe; Faust Pedrito syndrome; toxic epidermal necrosis; injury edema, hypersensitivity reactions. Including fatal, multiple organ failure to safe fatal, rash with eosinophilia systemic symptoms, DIC, neutropenia, leukopenia, thrombocytopenia, pancytopenia, aplastic anemia, hemolytic anemia, i pancreatitis, hepatic failure, rhabdomyolysis, worsening of suicidal ideation, worsening of depression, cleft lip/palate [first trimester use] DO not Change Cosmetic, perfumes or soap for next 4 weeks. The patient was advice to take lamotrigine as prescribed the patient was instructed not to deviate from the prescription dosages. Stop lamotrigine is the first sign of rash. Patient was instructed to contact the office if any of the serious side effect develops. 06/01/2024 Passive suicidal ideations (ICD-10 - R45.851) 06/29/2024 Binge eating disorder, mild (ICD-10 - F50.810) 06/08/2024 Panic disorder [episodic paroxysmal anxiety] without agoraphobia (ICD-10 - F41.0) lorazepam 0.5mg daily prn 1. Bipolar Disorder: - Patient reports lingering depression and increased anxiety in the past 2 weeks. - Currently on Vraylar 4.5 mg and has a history of quick responses to antidepressants and chirag symptoms. - Previously tried lamotrigine with some good results. Plan: - Do not increase Vraylar dosage. - Restart lamotrigine: 25 mg once a day for 2 weeks, then 50 mg once a day for 2 weeks. - Schedule follow-up appointment in 1 month to assess response to lamotrigine. 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 2. Anxiety: - Patient reports increased anxiety in the past 2 weeks, which may be related to chirag. - Currently taking lorazepam as needed for anxiety. Plan: - Continue lorazepam as needed for anxiety. - Monitor anxiety levels during the follow-up appointment in 1 month. 3. Sleep: - Patient reports good sleep quality but has experienced difficulty falling asleep in the past 2 weeks. - Has not been needing trazodone recently. Plan: - Continue to monitor sleep quality during the follow-up appointment in 1 month. 4. Patient interest in electromagnetic therapies: - Patient inquired about electromagnetic therapies for bipolar disorder. Plan: - Educate patient that electromagnetic therapies are currently FDA-approved only for major depressive disorder and not covered by insurance for bipolar disorder. Follow-up: - Schedule a follow-up appointment in 1 month to assess patient's response to lamotrigine, monitor anxiety levels, and evaluate sleep quality. 07/30/2024 Binge eating disorder, mild (ICD-10 - F50.810) 07/21/2024 Bipolar affective disorder, mixed (ICD-10 - F31.60) Lamotrigine Lamotrigine has a serious rash requiring hospitalization and discontinue treatment including Danny Pedrito syndrome rare case of toxic epidermal necrolysis and cache related deaths. Incidence with adjunct of epilepsy treatment 0.8% in 2 to 16 years old and 0.3% in adults, bipolar and other mood disorders incidence 0.8% this initial monotherapy and 0.13% as adjunctive treatment. Other risk factor may include concomitant use of valproate acid derivative or exceeding initial lamotrigine does or does as clinician recommendation; most life-threatening rash of occurring first 2 to 8 weeks of treatment with isolated cases after prolonged treatment; though benign may occur, discontinue treatment at first sign of rash unless clearly not a drug related; TC treatment may not prevent trash from becoming life-threatening or permanently disabling or disfiguring. Comment reaction include, nausea/vomiting, dizziness/vertigo , visual disturbances, somnolence, ataxia, pruritus/rash, pharyngitis, headache, rhinitis, diarrhea, fever, asthenia, insomnia, tremor, abdominal pain, cough, accidental injury, constipation, dysmenorrhea, incoordination, anxiety, seizures, irritability, anorexia, xerostomia, and photosensitivity. Serious reactions include: Rash, severe; Faust Pedrito syndrome; toxic epidermal necrosis; injury edema, hypersensitivity reactions. Including fatal, multiple organ failure to safe fatal, rash with eosinophilia systemic symptoms, DIC, neutropenia, leukopenia, thrombocytopenia, pancytopenia, aplastic anemia, hemolytic anemia, i pancreatitis, hepatic failure, rhabdomyolysis, worsening of suicidal ideation, worsening of depression, cleft lip/palate [first trimester use] DO not Change Cosmetic, perfumes or soap for next 4 weeks. The patient was advice to take lamotrigine as prescribed the patient was instructed not to deviate from the prescription dosages. Stop lamotrigine is the first sign of rash. Patient was instructed to contact the office if any of the serious side effect develops. 08/20/2024 Negative depression screening (ICD-10 - Z13.31) 08/31/2024 Binge eating disorder, mild (ICD-10 - F50.810) 09/16/2024 Bipolar affective disorder, mixed (ICD-10 - F31.60) 08/20/2024 Bipolar affective disorder, mixed (ICD-10 - F31.60) Lamotrigine Lamotrigine has a serious rash requiring hospitalization and discontinue treatment including Danny Pedrito syndrome rare case of toxic epidermal necrolysis and cache related deaths. Incidence with adjunct of epilepsy treatment 0.8% in 2 to 16 years old and 0.3% in adults, bipolar and other mood disorders incidence 0.8% this initial monotherapy and 0.13% as adjunctive treatment. Other risk factor may include concomitant use of valproate acid derivative or exceeding initial lamotrigine does or does as clinician recommendation; most life-threatening rash of occurring first 2 to 8 weeks of treatment with isolated cases after prolonged treatment; though benign may occur, discontinue treatment at first sign of rash unless clearly not a drug related; TC treatment may not prevent trash from becoming life-threatening or permanently disabling or disfiguring. Comment reaction include, nausea/vomiting, dizziness/vertigo , visual disturbances, somnolence, ataxia, pruritus/rash, pharyngitis, headache, rhinitis, diarrhea, fever, asthenia, insomnia, tremor, abdominal pain, cough, accidental injury, constipation, dysmenorrhea, incoordination, anxiety, seizures, irritability, anorexia, xerostomia, and photosensitivity. Serious reactions include: Rash, severe; Faust Pedrito syndrome; toxic epidermal necrosis; injury edema, hypersensitivity reactions. Including fatal, multiple organ failure to safe fatal, rash with eosinophilia systemic symptoms, DIC, neutropenia, leukopenia, thrombocytopenia, pancytopenia, aplastic anemia, hemolytic anemia, i pancreatitis, hepatic failure, rhabdomyolysis, worsening of suicidal ideation, worsening of depression, cleft lip/palate [first trimester use] DO not Change Cosmetic, perfumes or soap for next 4 weeks. The patient was advice to take lamotrigine as prescribed the patient was instructed not to deviate from the prescription dosages. Stop lamotrigine is the first sign of rash. Patient was instructed to contact the office if any of the serious side effect develops. 09/21/2024 Encounter for screening for depression (ICD-10 - Z13.31) 09/24/2024 Binge eating disorder, mild (ICD-10 - F50.810) 10/22/2024 Bipolar affective disorder, mixed (ICD-10 - F31.60) [place] may decrease the serum concentration of antipsychotic agents Lamotrigine Lamotrigine has a serious rash requiring hospitalization and discontinue treatment including Danny Pedrito syndrome rare case of toxic epidermal necrolysis and cache related deaths. Incidence with adjunct of epilepsy treatment 0.8% in 2 to 16 years old and 0.3% in adults, bipolar and other mood disorders incidence 0.8% this initial monotherapy and 0.13% as adjunctive treatment. Other risk factor may include concomitant use of valproate acid derivative or exceeding initial lamotrigine does or does as clinician recommendation; most life-threatening rash of occurring first 2 to 8 weeks of treatment with isolated cases after prolonged treatment; though benign may occur, discontinue treatment at first sign of rash unless clearly not a drug related; TC treatment may not prevent trash from becoming life-threatening or permanently disabling or disfiguring. Comment reaction include, nausea/vomiting, dizziness/vertigo , visual disturbances, somnolence, ataxia, pruritus/rash, pharyngitis, headache, rhinitis, diarrhea, fever, asthenia, insomnia, tremor, abdominal pain, cough, accidental injury, constipation, dysmenorrhea, incoordination, anxiety, seizures, irritability, anorexia, xerostomia, and photosensitivity. Serious reactions include: Rash, severe; Faust Pedrito syndrome; toxic epidermal necrosis; injury edema, hypersensitivity reactions. Including fatal, multiple organ failure to safe fatal, rash with eosinophilia systemic symptoms, DIC, neutropenia, leukopenia, thrombocytopenia, pancytopenia, aplastic anemia, hemolytic anemia, i pancreatitis, hepatic failure, rhabdomyolysis, worsening of suicidal ideation, worsening of depression, cleft lip/palate [first trimester use] DO not Change Cosmetic, perfumes or soap for next 4 weeks. The patient was advice to take lamotrigine as prescribed the patient was instructed not to deviate from the prescription dosages. Stop lamotrigine is the first sign of rash. Patient was instructed to contact the office if any of the serious side effect develops. 11/12/2024 Bipolar affective disorder, mixed (ICD-10 - F31.60) [place] may decrease the serum concentration of antipsychotic agents Lamotrigine Lamotrigine has a serious rash requiring hospitalization and discontinue treatment including Danny Pedrito syndrome rare case of toxic epidermal necrolysis and cache related deaths. Incidence with adjunct of epilepsy treatment 0.8% in 2 to 16 years old and 0.3% in adults, bipolar and other mood disorders incidence 0.8% this initial monotherapy and 0.13% as adjunctive treatment. Other risk factor may include concomitant use of valproate acid derivative or exceeding initial lamotrigine does or does as clinician recommendation; most life-threatening rash of occurring first 2 to 8 weeks of treatment with isolated cases after prolonged treatment; though benign may occur, discontinue treatment at first sign of rash unless clearly not a drug related; TC treatment may not prevent trash from becoming life-threatening or permanently disabling or disfiguring. Comment reaction include, nausea/vomiting, dizziness/vertigo , visual disturbances, somnolence, ataxia, pruritus/rash, pharyngitis, headache, rhinitis, diarrhea, fever, asthenia, insomnia, tremor, abdominal pain, cough, accidental injury, constipation, dysmenorrhea, incoordination, anxiety, seizures, irritability, anorexia, xerostomia, and photosensitivity. Serious reactions include: Rash, severe; Faust Pedrito syndrome; toxic epidermal necrosis; injury edema, hypersensitivity reactions. Including fatal, multiple organ failure to safe fatal, rash with eosinophilia systemic symptoms, DIC, neutropenia, leukopenia, thrombocytopenia, pancytopenia, aplastic anemia, hemolytic anemia, i pancreatitis, hepatic failure, rhabdomyolysis, worsening of suicidal ideation, worsening of depression, cleft lip/palate [first trimester use] DO not Change Cosmetic, perfumes or soap for next 4 weeks. The patient was advice to take lamotrigine as prescribed the patient was instructed not to deviate from the prescription dosages. Stop lamotrigine is the first sign of rash. Patient was instructed to contact the office if any of the serious side effect develops. 11/12/2024 Nicotine use (ICD-10 - Z72.0) 11/12/2024 Binge eating disorder, mild (ICD-10 - F50.810) 10/22/2024 Nicotine use (ICD-10 - Z72.0) 09/21/2024 Nicotine use (ICD-10 - Z72.0) 08/20/2024 Binge eating disorder, mild (ICD-10 - F50.810) 07/21/2024 Binge eating disorder, mild (ICD-10 - F50.810) 06/01/2024 Panic disorder [episodic paroxysmal anxiety] without agoraphobia (ICD-10 - F41.0) lorazepam 0.5mg daily prn 06/08/2024 Generalized anxiety disorder (ICD-10 - F41.1) 1. Bipolar Disorder: - Patient reports lingering depression and increased anxiety in the past 2 weeks. - Currently on Vraylar 4.5 mg and has a history of quick responses to antidepressants and chirag symptoms. - Previously tried lamotrigine with some good results. Plan: - Do not increase Vraylar dosage. - Restart lamotrigine: 25 mg once a day for 2 weeks, then 50 mg once a day for 2 weeks. - Schedule follow-up appointment in 1 month to assess response to lamotrigine. 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 2. Anxiety: - Patient reports increased anxiety in the past 2 weeks, which may be related to chirag. - Currently taking lorazepam as needed for anxiety. Plan: - Continue lorazepam as needed for anxiety. - Monitor anxiety levels during the follow-up appointment in 1 month. 3. Sleep: - Patient reports good sleep quality but has experienced difficulty falling asleep in the past 2 weeks. - Has not been needing trazodone recently. Plan: - Continue to monitor sleep quality during the follow-up appointment in 1 month. 4. Patient interest in electromagnetic therapies: - Patient inquired about electromagnetic therapies for bipolar disorder. Plan: - Educate patient that electromagnetic therapies are currently FDA-approved only for major depressive disorder and not covered by insurance for bipolar disorder. Follow-up: - Schedule a follow-up appointment in 1 month to assess patient's response to lamotrigine, monitor anxiety levels, and evaluate sleep quality. 04/14/2024 Generalized anxiety disorder (ICD-10 - F41.1) 1. Bipolar Disorder: - Patient reports lingering depression and increased anxiety in the past 2 weeks. - Currently on Vraylar 4.5 mg and has a history of quick responses to antidepressants and chirag symptoms. - Previously tried lamotrigine with some good results. Plan: - Do not increase Vraylar dosage. - Restart lamotrigine: 25 mg once a day for 2 weeks, then 50 mg once a day for 2 weeks. - Schedule follow-up appointment in 1 month to assess response to lamotrigine. 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 2. Anxiety: - Patient reports increased anxiety in the past 2 weeks, which may be related to chirag. - Currently taking lorazepam as needed for anxiety. Plan: - Continue lorazepam as needed for anxiety. - Monitor anxiety levels during the follow-up appointment in 1 month. 3. Sleep: - Patient reports good sleep quality but has experienced difficulty falling asleep in the past 2 weeks. - Has not been needing trazodone recently. Plan: - Continue to monitor sleep quality during the follow-up appointment in 1 month. 4. Patient interest in electromagnetic therapies: - Patient inquired about electromagnetic therapies for bipolar disorder. Plan: - Educate patient that electromagnetic therapies are currently FDA-approved only for major depressive disorder and not covered by insurance for bipolar disorder. Follow-up: - Schedule a follow-up appointment in 1 month to assess patient's response to lamotrigine, monitor anxiety levels, and evaluate sleep quality. 03/17/2024 Generalized anxiety disorder (ICD-10 - F41.1) 1. Bipolar Disorder: - Patient reports improvement with Vraylar 3 mg, but still experiences depressive symptoms and anxiety. No manic symptoms reported. - Plan: Increase Vraylar to 4.5 mg daily. Provide samples of 1.5 mg to supplement the current 3 mg supply until the new prescription is filled. Monitor for side effects and mood changes. 2. Insomnia: - Patient reports difficulty falling asleep and relies on trazodone for sleep. - Plan: Continue trazodone as needed for sleep. Refill prescription. Monitor sleep patterns and adjust medication as necessary. 3. Anxiety: - Patient is using lorazepam as needed for anxiety. - Plan: Continue lorazepam as needed. Monitor anxiety levels and adjust medication if necessary. 4. ADHD and Binge Eating Disorder: - Patient is taking lisdexamfetamin e (Vyvanse) for ADHD and binge eating disorder, reporting good results. - Plan: Continue lisdexamfetamin e. Refill prescription with the generic version to reduce cost. Monitor for changes in ADHD symptoms and binge eating behaviors. 5. Elevated Liver Enzymes: - Patient has a history of elevated liver enzymes and hep C antibodies. - Plan: Monitor liver enzyme levels through blood work. Follow up on hep C antibody status and consider further evaluation if necessary. 6. Medication Timing: - Patient inquires about the best time to take Vraylar. - Plan: Advise the patient to take Vraylar earlier in the day or in the morning if it causes activation. Adjust the timing based on the patient's response to the medication. 02/17/2024 Insomnia due to other mental disorder (ICD-10 - F51.05) 1. Bipolar disorder: - Patient reports improvement with Vraylar 3 mg, with the manic symptoms subsiding but still experiencing depression and anger. - Plan: Continue Vraylar 3 mg and monitor for further improvement. Schedule a follow-up appointment in 3 weeks to reassess the patient's response to the medication. 2. Anxiety: - Patient is currently taking lorazepam as needed. - Plan: Provide a refill for lorazepam and continue to monitor the patient's anxiety levels during follow-up appointments. 3. Insomnia: - Patient reports sleeping well in the past few nights and has been taking trazodone. - Plan: Encourage the patient to continue taking trazodone as needed for sleep and monitor for any changes in sleep patterns during follow-up appointments. 4. Attention deficit hyperactivity disorder (ADHD): - Patient was previously on Vyvanse 70 mg. - Plan: Resume Vyvanse 70 mg and monitor for any changes in the patient's ADHD symptoms. Check with [facility] for potential coverage of the medication. 5. Medication management: - Patient has switched to [facility] for medication pick-up and coverage. - Plan: Update the patient's pharmacy information to [facility] and ensure all prescriptions are sent to the correct pharmacy. Monitor the patient's medication adherence during follow-up appointments. 01/16/2024 Insomnia due to other mental disorder (ICD-10 - F51.05) 1. Bipolar Disorder - Mixed Episodes - Patient reports experiencing mixed symptoms, including racing thoughts, irritability, and sleep disturbances. Vraylar has shown improvement in symptoms. Plan: - Increase Vraylar from 1.5 mg to 3 mg daily. - Monitor patient's response to the increased dosage and adjust as needed during follow-up visits. 2. Paxil Withdrawal - Patient reports experiencing brain zaps, nausea, vomiting, diarrhea, and increased depression after weaning off Paxil. Plan: - Continue tapering Paxil slowly to minimize withdrawal symptoms. - Monitor patient's progress and adjust the tapering schedule as needed during follow-up visits. 3. Insomnia - Patient reports difficulty sleeping despite taking trazodone and lorazepam. Plan: - Refill trazodone prescription for bedtime use. - Encourage patient to maintain a consistent sleep schedule and practice good sleep hygiene. - Reassess sleep issues during follow-up visits and adjust treatment as needed. 4. Panic Disorder - Patient reports using lorazepam to help with racing thoughts and anxiety. Plan: - Refill lorazepam prescription (0.5 mg daily as needed). - Encourage patient to utilize non-pharmacolog ical coping strategies for anxiety, such as deep breathing exercises and mindfulness techniques. - Monitor patient's anxiety levels and adjust treatment as needed during follow-up visits. 5. Binge Eating Disorder - Patient is discontinuing Vyvanse due to cost and plans to manage binge eating through lifestyle changes. Plan: - Encourage patient to engage in regular physical activity, such as walking, and focus on self-improvemen t. - Monitor patient's progress in managing binge eating during follow-up visits and consider alternative treatment options if necessary. Follow-up: - Schedule a follow-up appointment in three weeks to monitor patient's progress and adjust treatment plans as needed. 12/25/2023 Bipolar affective disorder, currently manic, moderate (ICD-10 - F31.12) vraylar 1.5mg 1. Involuntary muscle movements and possible tardive dyskinesia - The patient presents with involuntary muscle movements, including opening and closing her mouth, head movements, and tremors in the upper and lower extremities. These symptoms may be indicative of tardive dyskinesia. Plan: - Recommend the patient to visit the walk-in clinic for further evaluation and management. - Consider referral to a neurologist if symptoms persist or worsen. 2. Bipolar disorder - The patient has a history of bipolar disorder and was previously on Vraylar, which she has discontinued due to cost or insurance issues. She is currently only taking Paxil and Vyvanse. Plan: - Encourage the patient to visit the walk-in clinic to discuss alternative medications for bipolar disorder management. - Consider restarting Vraylar or initiating another mood stabilizer, taking into account the patient's insurance and financial situation. 3. Medication management - The patient is currently taking Paxil and Vyvanse. It is unclear if these medications are contributing to her involuntary muscle movements or if they are adequately managing her bipolar disorder. Plan: - Reevaluate the patient's medication regimen during her walk-in clinic visit. - Consider adjusting dosages or changing medications as needed to optimize her mental health and minimize side effects. 4. Suicidal and homicidal ideation - The patient has a history of suicide attempts and psychiatric hospitalization s but denies any current suicidal or homicidal ideation. Plan: 12/24/2023 Non-compliance (ICD-10 - Z91.199) 1. Bipolar disorder, currently in manic phase - Continue Paxil as prescribed - Discontinue Vyvanse temporarily due to current manic state - Initiate Vraylar; patient provided with a sample and instructed to take one dose immediately, then continue with one dose daily - Encourage patient to roll picker Vraylar prescription from the pharmacy - Patient to follow up with [facility] tomorrow as scheduled - Patient reports manic symptoms for about 1.5 weeks, worsening in the last 3 days - Patient went to ER recently due to concerns about psychosis/ increased involuntary movements. 2. Insomnia - Instruct patient to take lorazepam (Ativan) for anxiety and sleep when they get home - Monitor response to Vraylar, as it may help with sleep regulation - Patient reports not sleeping for about 3 days 3. Possible tardive dyskinesia/EPS (ruled out during the visit) - Reassure patient that current symptoms are likely due to chirag, not tardive dyskinesia/EPS - Monitor for any future signs of tardive dyskinesia, especially when taking antipsychotic medications - Patient reports involuntary mouth movements and fidgeting 4. No suicidal ideation or self-harm - Continue to assess for any changes in mood or thoughts of self-harm during follow-up appointments 5. No hallucinations - Continue to monitor for any changes in mental status or the presence of hallucinations during follow-up appointments 6. Medication history - Patient previously on Abilify, discontinued in July - Patient tried a sample of Latuda but did not continue due to cost - Currently on Paxil and Vyvanse - Previously on Lamotrigine, discontinued during a psych mc stay 7. medication non-compliance - patient reports she did not roll picker Vraylar 1.5 mg po daily prescription from the pharmacy - Ensure mother assists the patient in medication compliance - obtain and utilize a pill organizer - Utilize a phone alarm to take medications as prescribed. 12/25/2023 Insomnia due to other mental disorder (ICD-10 - F51.05) 1. Involuntary muscle movements and possible tardive dyskinesia - The patient presents with involuntary muscle movements, including opening and closing her mouth, head movements, and tremors in the upper and lower extremities. These symptoms may be indicative of tardive dyskinesia. Plan: - Recommend the patient to visit the walk-in clinic for further evaluation and management. - Consider referral to a neurologist if symptoms persist or worsen. 2. Bipolar disorder - The patient has a history of bipolar disorder and was previously on Vraylar, which she has discontinued due to cost or insurance issues. She is currently only taking Paxil and Vyvanse. Plan: - Encourage the patient to visit the walk-in clinic to discuss alternative medications for bipolar disorder management. - Consider restarting Vraylar or initiating another mood stabilizer, taking into account the patient's insurance and financial situation. 3. Medication management - The patient is currently taking Paxil and Vyvanse. It is unclear if these medications are contributing to her involuntary muscle movements or if they are adequately managing her bipolar disorder. Plan: - Reevaluate the patient's medication regimen during her walk-in clinic visit. - Consider adjusting dosages or changing medications as needed to optimize her mental health and minimize side effects. 4. Suicidal and homicidal ideation - The patient has a history of suicide attempts and psychiatric hospitalization s but denies any current suicidal or homicidal ideation. Plan: 01/16/2024 Bipolar affective disorder, mixed (ICD-10 - F31.60) 1. Bipolar Disorder - Mixed Episodes - Patient reports experiencing mixed symptoms, including racing thoughts, irritability, and sleep disturbances. Vraylar has shown improvement in symptoms. Plan: - Increase Vraylar from 1.5 mg to 3 mg daily. - Monitor patient's response to the increased dosage and adjust as needed during follow-up visits. 2. Paxil Withdrawal - Patient reports experiencing brain zaps, nausea, vomiting, diarrhea, and increased depression after weaning off Paxil. Plan: - Continue tapering Paxil slowly to minimize withdrawal symptoms. - Monitor patient's progress and adjust the tapering schedule as needed during follow-up visits. 3. Insomnia - Patient reports difficulty sleeping despite taking trazodone and lorazepam. Plan: - Refill trazodone prescription for bedtime use. - Encourage patient to maintain a consistent sleep schedule and practice good sleep hygiene. - Reassess sleep issues during follow-up visits and adjust treatment as needed. 4. Panic Disorder - Patient reports using lorazepam to help with racing thoughts and anxiety. Plan: - Refill lorazepam prescription (0.5 mg daily as needed). - Encourage patient to utilize non-pharmacolog ical coping strategies for anxiety, such as deep breathing exercises and mindfulness techniques. - Monitor patient's anxiety levels and adjust treatment as needed during follow-up visits. 5. Binge Eating Disorder - Patient is discontinuing Vyvanse due to cost and plans to manage binge eating through lifestyle changes. Plan: - Encourage patient to engage in regular physical activity, such as walking, and focus on self-improvemen t. - Monitor patient's progress in managing binge eating during follow-up visits and consider alternative treatment options if necessary. Follow-up: - Schedule a follow-up appointment in three weeks to monitor patient's progress and adjust treatment plans as needed. 03/17/2024 Insomnia due to other mental disorder (ICD-10 - F51.05) 1. Bipolar Disorder: - Patient reports improvement with Vraylar 3 mg, but still experiences depressive symptoms and anxiety. No manic symptoms reported. - Plan: Increase Vraylar to 4.5 mg daily. Provide samples of 1.5 mg to supplement the current 3 mg supply until the new prescription is filled. Monitor for side effects and mood changes. 2. Insomnia: - Patient reports difficulty falling asleep and relies on trazodone for sleep. - Plan: Continue trazodone as needed for sleep. Refill prescription. Monitor sleep patterns and adjust medication as necessary. 3. Anxiety: - Patient is using lorazepam as needed for anxiety. - Plan: Continue lorazepam as needed. Monitor anxiety levels and adjust medication if necessary. 4. ADHD and Binge Eating Disorder: - Patient is taking lisdexamfetamin e (Vyvanse) for ADHD and binge eating disorder, reporting good results. - Plan: Continue lisdexamfetamin e. Refill prescription with the generic version to reduce cost. Monitor for changes in ADHD symptoms and binge eating behaviors. 5. Elevated Liver Enzymes: - Patient has a history of elevated liver enzymes and hep C antibodies. - Plan: Monitor liver enzyme levels through blood work. Follow up on hep C antibody status and consider further evaluation if necessary. 6. Medication Timing: - Patient inquires about the best time to take Vraylar. - Plan: Advise the patient to take Vraylar earlier in the day or in the morning if it causes activation. Adjust the timing based on the patient's response to the medication. 02/17/2024 Bipolar affective disorder, mixed (ICD-10 - F31.60) 1. Bipolar disorder: - Patient reports improvement with Vraylar 3 mg, with the manic symptoms subsiding but still experiencing depression and anger. - Plan: Continue Vraylar 3 mg and monitor for further improvement. Schedule a follow-up appointment in 3 weeks to reassess the patient's response to the medication. 2. Anxiety: - Patient is currently taking lorazepam as needed. - Plan: Provide a refill for lorazepam and continue to monitor the patient's anxiety levels during follow-up appointments. 3. Insomnia: - Patient reports sleeping well in the past few nights and has been taking trazodone. - Plan: Encourage the patient to continue taking trazodone as needed for sleep and monitor for any changes in sleep patterns during follow-up appointments. 4. Attention deficit hyperactivity disorder (ADHD): - Patient was previously on Vyvanse 70 mg. - Plan: Resume Vyvanse 70 mg and monitor for any changes in the patient's ADHD symptoms. Check with [facility] for potential coverage of the medication. 5. Medication management: - Patient has switched to [facility] for medication pick-up and coverage. - Plan: Update the patient's pharmacy information to [facility] and ensure all prescriptions are sent to the correct pharmacy. Monitor the patient's medication adherence during follow-up appointments. 04/14/2024 Insomnia due to other mental disorder (ICD-10 - F51.05) 1. Bipolar Disorder: - Patient reports lingering depression and increased anxiety in the past 2 weeks. - Currently on Vraylar 4.5 mg and has a history of quick responses to antidepressants and chirag symptoms. - Previously tried lamotrigine with some good results. Plan: - Do not increase Vraylar dosage. - Restart lamotrigine: 25 mg once a day for 2 weeks, then 50 mg once a day for 2 weeks. - Schedule follow-up appointment in 1 month to assess response to lamotrigine. 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 2. Anxiety: - Patient reports increased anxiety in the past 2 weeks, which may be related to chirag. - Currently taking lorazepam as needed for anxiety. Plan: - Continue lorazepam as needed for anxiety. - Monitor anxiety levels during the follow-up appointment in 1 month. 3. Sleep: - Patient reports good sleep quality but has experienced difficulty falling asleep in the past 2 weeks. - Has not been needing trazodone recently. Plan: - Continue to monitor sleep quality during the follow-up appointment in 1 month. 4. Patient interest in electromagnetic therapies: - Patient inquired about electromagnetic therapies for bipolar disorder. Plan: - Educate patient that electromagnetic therapies are currently FDA-approved only for major depressive disorder and not covered by insurance for bipolar disorder. Follow-up: - Schedule a follow-up appointment in 1 month to assess patient's response to lamotrigine, monitor anxiety levels, and evaluate sleep quality. 06/01/2024 Generalized anxiety disorder (ICD-10 - F41.1) 06/08/2024 Insomnia due to other mental disorder (ICD-10 - F51.05) 1. Bipolar Disorder: - Patient reports lingering depression and increased anxiety in the past 2 weeks. - Currently on Vraylar 4.5 mg and has a history of quick responses to antidepressants and chirag symptoms. - Previously tried lamotrigine with some good results. Plan: - Do not increase Vraylar dosage. - Restart lamotrigine: 25 mg once a day for 2 weeks, then 50 mg once a day for 2 weeks. - Schedule follow-up appointment in 1 month to assess response to lamotrigine. 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 2. Anxiety: - Patient reports increased anxiety in the past 2 weeks, which may be related to chirag. - Currently taking lorazepam as needed for anxiety. Plan: - Continue lorazepam as needed for anxiety. - Monitor anxiety levels during the follow-up appointment in 1 month. 3. Sleep: - Patient reports good sleep quality but has experienced difficulty falling asleep in the past 2 weeks. - Has not been needing trazodone recently. Plan: - Continue to monitor sleep quality during the follow-up appointment in 1 month. 4. Patient interest in electromagnetic therapies: - Patient inquired about electromagnetic therapies for bipolar disorder. Plan: - Educate patient that electromagnetic therapies are currently FDA-approved only for major depressive disorder and not covered by insurance for bipolar disorder. Follow-up: - Schedule a follow-up appointment in 1 month to assess patient's response to lamotrigine, monitor anxiety levels, and evaluate sleep quality. 07/21/2024 Generalized anxiety disorder (ICD-10 - F41.1) 07/21/2024 Panic disorder [episodic paroxysmal anxiety] without agoraphobia (ICD-10 - F41.0) lorazepam 0.5mg daily prn 08/20/2024 Panic disorder [episodic paroxysmal anxiety] without agoraphobia (ICD-10 - F41.0) lorazepam 0.5mg daily prn 09/21/2024 Encounter for screening for cardiovascular disorders (ICD-10 - Z13.6) 10/22/2024 Binge eating disorder, mild (ICD-10 - F50.810) 11/12/2024 Panic disorder [episodic paroxysmal anxiety] without agoraphobia (ICD-10 - F41.0) lorazepam 0.5mg daily prn 10/22/2024 Panic disorder [episodic paroxysmal anxiety] without agoraphobia (ICD-10 - F41.0) lorazepam 0.5mg daily prn 11/12/2024 Generalized anxiety disorder (ICD-10 - F41.1) 09/21/2024 Bipolar affective disorder, mixed (ICD-10 - F31.60) Lamotrigine Lamotrigine has a serious rash requiring hospitalization and discontinue treatment including Danny Pedrito syndrome rare case of toxic epidermal necrolysis and cache related deaths. Incidence with adjunct of epilepsy treatment 0.8% in 2 to 16 years old and 0.3% in adults, bipolar and other mood disorders incidence 0.8% this initial monotherapy and 0.13% as adjunctive treatment. Other risk factor may include concomitant use of valproate acid derivative or exceeding initial lamotrigine does or does as clinician recommendation; most life-threatening rash of occurring first 2 to 8 weeks of treatment with isolated cases after prolonged treatment; though benign may occur, discontinue treatment at first sign of rash unless clearly not a drug related; TC treatment may not prevent trash from becoming life-threatening or permanently disabling or disfiguring. Comment reaction include, nausea/vomiting, dizziness/vertigo , visual disturbances, somnolence, ataxia, pruritus/rash, pharyngitis, headache, rhinitis, diarrhea, fever, asthenia, insomnia, tremor, abdominal pain, cough, accidental injury, constipation, dysmenorrhea, incoordination, anxiety, seizures, irritability, anorexia, xerostomia, and photosensitivity. Serious reactions include: Rash, severe; Faust Pedrito syndrome; toxic epidermal necrosis; injury edema, hypersensitivity reactions. Including fatal, multiple organ failure to safe fatal, rash with eosinophilia systemic symptoms, DIC, neutropenia, leukopenia, thrombocytopenia, pancytopenia, aplastic anemia, hemolytic anemia, i pancreatitis, hepatic failure, rhabdomyolysis, worsening of suicidal ideation, worsening of depression, cleft lip/palate [first trimester use] DO not Change Cosmetic, perfumes or soap for next 4 weeks. The patient was advice to take lamotrigine as prescribed the patient was instructed not to deviate from the prescription dosages. Stop lamotrigine is the first sign of rash. Patient was instructed to contact the office if any of the serious side effect develops. 07/21/2024 Insomnia due to other mental disorder (ICD-10 - F51.05) 06/08/2024 Bipolar affective disorder, mixed (ICD-10 - F31.60) Lamotrigine Lamotrigine has a serious rash requiring hospitalization and discontinue treatment including Danny Pedrito syndrome rare case of toxic epidermal necrolysis and cache related deaths. Incidence with adjunct of epilepsy treatment 0.8% in 2 to 16 years old and 0.3% in adults, bipolar and other mood disorders incidence 0.8% this initial monotherapy and 0.13% as adjunctive treatment. Other risk factor may include concomitant use of valproate acid derivative or exceeding initial lamotrigine does or does as clinician recommendation; most life-threatening rash of occurring first 2 to 8 weeks of treatment with isolated cases after prolonged treatment; though benign may occur, discontinue treatment at first sign of rash unless clearly not a drug related; TC treatment may not prevent trash from becoming life-threatening or permanently disabling or disfiguring. Comment reaction include, nausea/vomiting, dizziness/vertigo , visual disturbances, somnolence, ataxia, pruritus/rash, pharyngitis, headache, rhinitis, diarrhea, fever, asthenia, insomnia, tremor, abdominal pain, cough, accidental injury, constipation, dysmenorrhea, incoordination, anxiety, seizures, irritability, anorexia, xerostomia, and photosensitivity. Serious reactions include: Rash, severe; Faust Pedrito syndrome; toxic epidermal necrosis; injury edema, hypersensitivity reactions. Including fatal, multiple organ failure to safe fatal, rash with eosinophilia systemic symptoms, DIC, neutropenia, leukopenia, thrombocytopenia, pancytopenia, aplastic anemia, hemolytic anemia, i pancreatitis, hepatic failure, rhabdomyolysis, worsening of suicidal ideation, worsening of depression, cleft lip/palate [first trimester use] DO not Change Cosmetic, perfumes or soap for next 4 weeks. The patient was advice to take lamotrigine as prescribed the patient was instructed not to deviate from the prescription dosages. Stop lamotrigine is the first sign of rash. Patient was instructed to contact the office if any of the serious side effect develops. 1. Bipolar Disorder: - Patient reports lingering depression and increased anxiety in the past 2 weeks. - Currently on Vraylar 4.5 mg and has a history of quick responses to antidepressants and chirag symptoms. - Previously tried lamotrigine with some good results. Plan: - Do not increase Vraylar dosage. - Restart lamotrigine: 25 mg once a day for 2 weeks, then 50 mg once a day for 2 weeks. - Schedule follow-up appointment in 1 month to assess response to lamotrigine. 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 2. Anxiety: - Patient reports increased anxiety in the past 2 weeks, which may be related to chirag. - Currently taking lorazepam as needed for anxiety. Plan: - Continue lorazepam as needed for anxiety. - Monitor anxiety levels during the follow-up appointment in 1 month. 3. Sleep: - Patient reports good sleep quality but has experienced difficulty falling asleep in the past 2 weeks. - Has not been needing trazodone recently. Plan: - Continue to monitor sleep quality during the follow-up appointment in 1 month. 4. Patient interest in electromagnetic therapies: - Patient inquired about electromagnetic therapies for bipolar disorder. Plan: - Educate patient that electromagnetic therapies are currently FDA-approved only for major depressive disorder and not covered by insurance for bipolar disorder. Follow-up: - Schedule a follow-up appointment in 1 month to assess patient's response to lamotrigine, monitor anxiety levels, and evaluate sleep quality. 08/20/2024 Generalized anxiety disorder (ICD-10 - F41.1) 06/01/2024 Insomnia due to other mental disorder (ICD-10 - F51.05) 04/14/2024 Bipolar affective disorder, mixed (ICD-10 - F31.60) Lamotrigine Lamotrigine has a serious rash requiring hospitalization and discontinue treatment including Danny Pedrito syndrome rare case of toxic epidermal necrolysis and cache related deaths. Incidence with adjunct of epilepsy treatment 0.8% in 2 to 16 years old and 0.3% in adults, bipolar and other mood disorders incidence 0.8% this initial monotherapy and 0.13% as adjunctive treatment. Other risk factor may include concomitant use of valproate acid derivative or exceeding initial lamotrigine does or does as clinician recommendation; most life-threatening rash of occurring first 2 to 8 weeks of treatment with isolated cases after prolonged treatment; though benign may occur, discontinue treatment at first sign of rash unless clearly not a drug related; TC treatment may not prevent trash from becoming life-threatening or permanently disabling or disfiguring. Comment reaction include, nausea/vomiting, dizziness/vertigo , visual disturbances, somnolence, ataxia, pruritus/rash, pharyngitis, headache, rhinitis, diarrhea, fever, asthenia, insomnia, tremor, abdominal pain, cough, accidental injury, constipation, dysmenorrhea, incoordination, anxiety, seizures, irritability, anorexia, xerostomia, and photosensitivity. Serious reactions include: Rash, severe; Faust Pedrito syndrome; toxic epidermal necrosis; injury edema, hypersensitivity reactions. Including fatal, multiple organ failure to safe fatal, rash with eosinophilia systemic symptoms, DIC, neutropenia, leukopenia, thrombocytopenia, pancytopenia, aplastic anemia, hemolytic anemia, i pancreatitis, hepatic failure, rhabdomyolysis, worsening of suicidal ideation, worsening of depression, cleft lip/palate [first trimester use] DO not Change Cosmetic, perfumes or soap for next 4 weeks. The patient was advice to take lamotrigine as prescribed the patient was instructed not to deviate from the prescription dosages. Stop lamotrigine is the first sign of rash. Patient was instructed to contact the office if any of the serious side effect develops. 1. Bipolar Disorder: - Patient reports lingering depression and increased anxiety in the past 2 weeks. - Currently on Vraylar 4.5 mg and has a history of quick responses to antidepressants and chirag symptoms. - Previously tried lamotrigine with some good results. Plan: - Do not increase Vraylar dosage. - Restart lamotrigine: 25 mg once a day for 2 weeks, then 50 mg once a day for 2 weeks. - Schedule follow-up appointment in 1 month to assess response to lamotrigine. 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 2. Anxiety: - Patient reports increased anxiety in the past 2 weeks, which may be related to chirag. - Currently taking lorazepam as needed for anxiety. Plan: - Continue lorazepam as needed for anxiety. - Monitor anxiety levels during the follow-up appointment in 1 month. 3. Sleep: - Patient reports good sleep quality but has experienced difficulty falling asleep in the past 2 weeks. - Has not been needing trazodone recently. Plan: - Continue to monitor sleep quality during the follow-up appointment in 1 month. 4. Patient interest in electromagnetic therapies: - Patient inquired about electromagnetic therapies for bipolar disorder. Plan: - Educate patient that electromagnetic therapies are currently FDA-approved only for major depressive disorder and not covered by insurance for bipolar disorder. Follow-up: - Schedule a follow-up appointment in 1 month to assess patient's response to lamotrigine, monitor anxiety levels, and evaluate sleep quality. 03/17/2024 Bipolar affective disorder, mixed (ICD-10 - F31.60) 1. Bipolar Disorder: - Patient reports improvement with Vraylar 3 mg, but still experiences depressive symptoms and anxiety. No manic symptoms reported. - Plan: Increase Vraylar to 4.5 mg daily. Provide samples of 1.5 mg to supplement the current 3 mg supply until the new prescription is filled. Monitor for side effects and mood changes. 2. Insomnia: - Patient reports difficulty falling asleep and relies on trazodone for sleep. - Plan: Continue trazodone as needed for sleep. Refill prescription. Monitor sleep patterns and adjust medication as necessary. 3. Anxiety: - Patient is using lorazepam as needed for anxiety. - Plan: Continue lorazepam as needed. Monitor anxiety levels and adjust medication if necessary. 4. ADHD and Binge Eating Disorder: - Patient is taking lisdexamfetamin e (Vyvanse) for ADHD and binge eating disorder, reporting good results. - Plan: Continue lisdexamfetamin e. Refill prescription with the generic version to reduce cost. Monitor for changes in ADHD symptoms and binge eating behaviors. 5. Elevated Liver Enzymes: - Patient has a history of elevated liver enzymes and hep C antibodies. - Plan: Monitor liver enzyme levels through blood work. Follow up on hep C antibody status and consider further evaluation if necessary. 6. Medication Timing: - Patient inquires about the best time to take Vraylar. - Plan: Advise the patient to take Vraylar earlier in the day or in the morning if it causes activation. Adjust the timing based on the patient's response to the medication. 02/17/2024 Binge eating disorder, mild (ICD-10 - F50.810) 1. Bipolar disorder: - Patient reports improvement with Vraylar 3 mg, with the manic symptoms subsiding but still experiencing depression and anger. - Plan: Continue Vraylar 3 mg and monitor for further improvement. Schedule a follow-up appointment in 3 weeks to reassess the patient's response to the medication. 2. Anxiety: - Patient is currently taking lorazepam as needed. - Plan: Provide a refill for lorazepam and continue to monitor the patient's anxiety levels during follow-up appointments. 3. Insomnia: - Patient reports sleeping well in the past few nights and has been taking trazodone. - Plan: Encourage the patient to continue taking trazodone as needed for sleep and monitor for any changes in sleep patterns during follow-up appointments. 4. Attention deficit hyperactivity disorder (ADHD): - Patient was previously on Vyvanse 70 mg. - Plan: Resume Vyvanse 70 mg and monitor for any changes in the patient's ADHD symptoms. Check with [facility] for potential coverage of the medication. 5. Medication management: - Patient has switched to [facility] for medication pick-up and coverage. - Plan: Update the patient's pharmacy information to [facility] and ensure all prescriptions are sent to the correct pharmacy. Monitor the patient's medication adherence during follow-up appointments. 03/17/2024 Binge eating disorder, mild (ICD-10 - F50.810) 1. Bipolar Disorder: - Patient reports improvement with Vraylar 3 mg, but still experiences depressive symptoms and anxiety. No manic symptoms reported. - Plan: Increase Vraylar to 4.5 mg daily. Provide samples of 1.5 mg to supplement the current 3 mg supply until the new prescription is filled. Monitor for side effects and mood changes. 2. Insomnia: - Patient reports difficulty falling asleep and relies on trazodone for sleep. - Plan: Continue trazodone as needed for sleep. Refill prescription. Monitor sleep patterns and adjust medication as necessary. 3. Anxiety: - Patient is using lorazepam as needed for anxiety. - Plan: Continue lorazepam as needed. Monitor anxiety levels and adjust medication if necessary. 4. ADHD and Binge Eating Disorder: - Patient is taking lisdexamfetamin e (Vyvanse) for ADHD and binge eating disorder, reporting good results. - Plan: Continue lisdexamfetamin e. Refill prescription with the generic version to reduce cost. Monitor for changes in ADHD symptoms and binge eating behaviors. 5. Elevated Liver Enzymes: - Patient has a history of elevated liver enzymes and hep C antibodies. - Plan: Monitor liver enzyme levels through blood work. Follow up on hep C antibody status and consider further evaluation if necessary. 6. Medication Timing: - Patient inquires about the best time to take Vraylar. - Plan: Advise the patient to take Vraylar earlier in the day or in the morning if it causes activation. Adjust the timing based on the patient's response to the medication. 04/14/2024 Binge eating disorder, mild (ICD-10 - F50.810) 1. Bipolar Disorder: - Patient reports lingering depression and increased anxiety in the past 2 weeks. - Currently on Vraylar 4.5 mg and has a history of quick responses to antidepressants and chirag symptoms. - Previously tried lamotrigine with some good results. Plan: - Do not increase Vraylar dosage. - Restart lamotrigine: 25 mg once a day for 2 weeks, then 50 mg once a day for 2 weeks. - Schedule follow-up appointment in 1 month to assess response to lamotrigine. 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 2. Anxiety: - Patient reports increased anxiety in the past 2 weeks, which may be related to chirag. - Currently taking lorazepam as needed for anxiety. Plan: - Continue lorazepam as needed for anxiety. - Monitor anxiety levels during the follow-up appointment in 1 month. 3. Sleep: - Patient reports good sleep quality but has experienced difficulty falling asleep in the past 2 weeks. - Has not been needing trazodone recently. Plan: - Continue to monitor sleep quality during the follow-up appointment in 1 month. 4. Patient interest in electromagnetic therapies: - Patient inquired about electromagnetic therapies for bipolar disorder. Plan: - Educate patient that electromagnetic therapies are currently FDA-approved only for major depressive disorder and not covered by insurance for bipolar disorder. Follow-up: - Schedule a follow-up appointment in 1 month to assess patient's response to lamotrigine, monitor anxiety levels, and evaluate sleep quality. 08/20/2024 Insomnia due to other mental disorder (ICD-10 - F51.05) 06/08/2024 Binge eating disorder, mild (ICD-10 - F50.810) 1. Bipolar Disorder: - Patient reports lingering depression and increased anxiety in the past 2 weeks. - Currently on Vraylar 4.5 mg and has a history of quick responses to antidepressants and chirag symptoms. - Previously tried lamotrigine with some good results. Plan: - Do not increase Vraylar dosage. - Restart lamotrigine: 25 mg once a day for 2 weeks, then 50 mg once a day for 2 weeks. - Schedule follow-up appointment in 1 month to assess response to lamotrigine. 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 2. Anxiety: - Patient reports increased anxiety in the past 2 weeks, which may be related to chirag. - Currently taking lorazepam as needed for anxiety. Plan: - Continue lorazepam as needed for anxiety. - Monitor anxiety levels during the follow-up appointment in 1 month. 3. Sleep: - Patient reports good sleep quality but has experienced difficulty falling asleep in the past 2 weeks. - Has not been needing trazodone recently. Plan: - Continue to monitor sleep quality during the follow-up appointment in 1 month. 4. Patient interest in electromagnetic therapies: - Patient inquired about electromagnetic therapies for bipolar disorder. Plan: - Educate patient that electromagnetic therapies are currently FDA-approved only for major depressive disorder and not covered by insurance for bipolar disorder. Follow-up: - Schedule a follow-up appointment in 1 month to assess patient's response to lamotrigine, monitor anxiety levels, and evaluate sleep quality. 07/21/2024 Encounter for screening for depression (ICD-10 - Z13.31) 06/01/2024 Binge eating disorder, mild (ICD-10 - F50.810) 09/21/2024 Negative depression screening (ICD-10 - Z13.31) 10/22/2024 Generalized anxiety disorder (ICD-10 - F41.1) 11/12/2024 Insomnia due to other mental disorder (ICD-10 - F51.05) 10/22/2024 Insomnia due to other mental disorder (ICD-10 - F51.05) 07/21/2024 Encounter for screening for cardiovascular disorders (ICD-10 - Z13.6) 08/20/2024 Nicotine use (ICD-10 - Z72.0) 09/21/2024 Binge eating disorder, mild (ICD-10 - F50.810) 09/21/2024 Panic disorder [episodic paroxysmal anxiety] without agoraphobia (ICD-10 - F41.0) lorazepam 0.5mg daily prn 08/20/2024 Encounter for screening for cardiovascular disorders (ICD-10 - Z13.6) 08/20/2024 Encounter for screening for depression (ICD-10 - Z13.31) 09/21/2024 Generalized anxiety disorder (ICD-10 - F41.1) 09/21/2024 Insomnia due to other mental disorder (ICD-10 - F51.05) 12/24/2023 Other discussed medication adherance complication. Pt reported that UBALDO Taveras had given her a sample pack of Vraylar 1.5 mg. pt reported that UBALDO Taveras sent in a prescription for Vraylar 1.5mg po daily to her pharmacy. Pt reported that she has not picked up the medication from the pharmacy and has not taken any of the medication from the Vraylar sample pack. She reports she is on Vyvanse, Paroxetine regularly and that the ER gave her ativan. During today's assessment a new 7-day sample pack of Vraylar 1.5 mg po was given to the patient with her family member in the room. Discussed the need to initiate this treatment and discussed ways to maintain medication compliance, such as setting a phone alarm, utilizing a pill organizer and having her family member administer the medication to the patient. AIMS scale complete. Pt has an appointment with Tommy Dumont tomorrow. discussed side effects of medications. Discussed how EPS is formed and the need for dopamine blockade (she is not taking Vraylar, so EPS/TD has been ruled out). Compliance issues reviewed. Patient instructed to continue current medications including those previously mentioned. Spoke with UBALDO Taveras about patient updates. 1. Bipolar disorder, currently in manic phase - Continue Paxil as prescribed - Discontinue Vyvanse temporarily due to current manic state - Initiate Vraylar; patient provided with a sample and instructed to take one dose immediately, then continue with one dose daily - Encourage patient to roll picker Vraylar prescription from the pharmacy - Patient to follow up with Lalito tomorrow as scheduled - Patient reports manic symptoms for about 1.5 weeks, worsening in the last 3 days - Patient went to ER recently due to concerns about psychosis/ increased involuntary movements. 2. Insomnia - Instruct patient to take lorazepam (Ativan) for anxiety and sleep when they get home - Monitor response to Vraylar, as it may help with sleep regulation - Patient reports not sleeping for about 3 days 3. Possible tardive dyskinesia/EPS (ruled out during the visit) - Reassure patient that current symptoms are likely due to chirag, not tardive dyskinesia/EPS - Monitor for any future signs of tardive dyskinesia, especially when taking antipsychotic medications - Patient reports involuntary mouth movements and fidgeting 4. No suicidal ideation or self-harm - Continue to assess for any changes in mood or thoughts of self-harm during follow-up appointments 5. No hallucinations - Continue to monitor for any changes in mental status or the presence of hallucinations during follow-up appointments 6. Medication history - Patient previously on Abilify, discontinued in July - Patient tried a sample of Latuda but did not continue due to cost - Currently on Paxil and Vyvanse - Previously on Lamotrigine, discontinued during a psych mc stay 7. medication non-compliance - patient reports she did not roll picker Vraylar 1.5 mg po daily prescription from the pharmacy - Ensure mother assists the patient in medication compliance - obtain and utilize a pill organizer - Utilize a phone alarm to take medications as prescribed. 01/16/2024 Other vraylar 1.5mg 1. Bipolar Disorder - Mixed Episodes - Patient reports experiencing mixed symptoms, including racing thoughts, irritability, and sleep disturbances. Vraylar has shown improvement in symptoms. Plan: - Increase Vraylar from 1.5 mg to 3 mg daily. - Monitor patient's response to the increased dosage and adjust as needed during follow-up visits. 2. Paxil Withdrawal - Patient reports experiencing brain zaps, nausea, vomiting, diarrhea, and increased depression after weaning off Paxil. Plan: - Continue tapering Paxil slowly to minimize withdrawal symptoms. - Monitor patient's progress and adjust the tapering schedule as needed during follow-up visits. 3. Insomnia - Patient reports difficulty sleeping despite taking trazodone and lorazepam. Plan: - Refill trazodone prescription for bedtime use. - Encourage patient to maintain a consistent sleep schedule and practice good sleep hygiene. - Reassess sleep issues during follow-up visits and adjust treatment as needed. 4. Panic Disorder - Patient reports using lorazepam to help with racing thoughts and anxiety. Plan: - Refill lorazepam prescription (0.5 mg daily as needed). - Encourage patient to utilize non-pharmacolog ical coping strategies for anxiety, such as deep breathing exercises and mindfulness techniques. - Monitor patient's anxiety levels and adjust treatment as needed during follow-up visits. 5. Binge Eating Disorder - Patient is discontinuing Vyvanse due to cost and plans to manage binge eating through lifestyle changes. Plan: - Encourage patient to engage in regular physical activity, such as walking, and focus on self-improvemen t. - Monitor patient's progress in managing binge eating during follow-up visits and consider alternative treatment options if necessary. Follow-up: - Schedule a follow-up appointment in three weeks to monitor patient's progress and adjust treatment plans as needed. 06/01/2024 Other 1. Major Depressive Disorder -BDI: 50 - Patient reports severe depression, rating it as past 10 on a scale of 0 to 10. - History of two hospitalizations for suicidal ideation in July 2021 and July 2022. - Plan: a. Initiate New [place]ox 150 mg for one week b. Monitor for signs of lithium toxicity c. Ensure proper hydration. d. f/u in one week with primary psychiatric care provider. 2. Generalized Anxiety Disorder - KATELYN-7:14 - Patient reports anxiety at a level of 7 out of 10, with associated paranoia and irritability. - Plan: a. Continue Lorazepam 0.5 mg as needed. b. Monitor for improvement. c. f/u in one week with primary psychiatric care provider. 3. Bipolar Disorder - Patient reports no recent manic episodes. - Plan: a. Continue current medications as prescribed by primary psychiatric care provider. b. Add New Lenox 150 mg for one week. c. Reassess during follow-up appointment. 4. Sleep Disturbance - Patient reports oversleeping, approximately 18 to 20 hours per day. - Plan: Monitor sleep patterns and consider adjusting medications if needed during follow-up. - encouraged sleep hygiene. 5. Suicidal Ideation - Patient reports passive suicidal thoughts without plan or intent. - Plan: a. Provide crisis hotline number (302). b. Encourage patient to seek help if needed. c. Mitigate risks by providing only a week's supply of medications. d. Remove potential hazards. e. Schedule follow-up appointment in one week. 6. Therapy - Patient reports previous EMDR therapy, stopped due to financial constraints. - Plan: a. Offer in-house therapy options with Tyesha (EMDR certified) or Christine (general counseling). b. Encourage patient to consider resuming therapy. 7. Medication Management - Plan: a. Continue current medications. b. Add New Lenox 150 mg for one week. c. Reassess medication effectiveness during follow-up. 06/08/2024 Other 1. Major Depressive Disorder: - Patient reported a recent episode of severe depression that led to an emergency clinic visit. - New Lenox 150 mg once daily was initiated for a week, with significant improvement in depressive symptoms. - Patient is currently feeling well and functioning better. Plan: - Continue New Lenox 150 mg once daily. - Monitor for any side effects or recurrence of depressive symptoms. - Follow up in 1 month. 2. Anxiety: - Patient is taking lorazepam as needed and reported needing a refill due to medication damage. Plan: - Refill lorazepam prescription. - Encourage the patient to continue using lorazepam as needed for anxiety symptoms. 3. Insomnia: - Patient reported that trazodone was not effective in helping with sleep and experienced a night of staying awake after taking it. Plan: - Monitor the patient's sleep patterns and consider alternative sleep aids if insomnia persists. 4. Binge Eating Disorder: - Patient reported a slight improvement in weight and is managing binge eating better. Plan: - Encourage the patient to continue working on healthy eating habits and exercise, such as walking with their dog when the weather is consistently warm. 5. Medication Management: - Patient is currently taking Vraylar 4.5 mg daily, lamotrigine 50 mg (2 pills once daily), and various vitamins. Plan: - Refill Vraylar, lamotrigine, and vitamin prescriptions. - Monitor the patient's response to medications and adjust as needed during follow-up appointments. 6. Employment and Life Stressors: - Patient experienced increased stress and depressive symptoms after realizing they were underqualified for desired jobs. Plan: - Encourage the patient to continue working on personal growth and consider seeking additional education or training to improve job prospects. Follow-up: - Schedule a follow-up appointment in 1 month to monitor the patient's progress, medication effectiveness, and overall mental health. 1. Bipolar Disorder: - Patient reports lingering depression and increased anxiety in the past 2 weeks. - Currently on Vraylar 4.5 mg and has a history of quick responses to antidepressants and chirag symptoms. - Previously tried lamotrigine with some good results. Plan: - Do not increase Vraylar dosage. - Restart lamotrigine: 25 mg once a day for 2 weeks, then 50 mg once a day for 2 weeks. - Schedule follow-up appointment in 1 month to assess response to lamotrigine. 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 2. Anxiety: - Patient reports increased anxiety in the past 2 weeks, which may be related to chirag. - Currently taking lorazepam as needed for anxiety. Plan: - Continue lorazepam as needed for anxiety. - Monitor anxiety levels during the follow-up appointment in 1 month. 3. Sleep: - Patient reports good sleep quality but has experienced difficulty falling asleep in the past 2 weeks. - Has not been needing trazodone recently. Plan: - Continue to monitor sleep quality during the follow-up appointment in 1 month. 4. Patient interest in electromagnetic therapies: - Patient inquired about electromagnetic therapies for bipolar disorder. Plan: - Educate patient that electromagnetic therapies are currently FDA-approved only for major depressive disorder and not covered by insurance for bipolar disorder. Follow-up: - Schedule a follow-up appointment in 1 month to assess patient's response to lamotrigine, monitor anxiety levels, and evaluate sleep quality. 07/21/2024 Other If you are planning on becoming , notify your health care provider so that he/she can best manage your medications. People living with bipolar disorder who wish to become face important decisions. It is important to discuss the risks and benefits of treatment with your doctor and caregivers. [place] has been associated with an increased risk of Ebstein's anomaly, a heart valve defect. Even though data suggest that the risk of Ebstein's anomaly from first trimester use of lithium is very low, an ultrasound of the heart is recommended at 16 to 20 weeks of gestation. [place] levels should be monitored monthly in early and weekly near delivery. Do not stop taking lithium without first speaking to your health care provider. Discontinuing mood stabilizer medications during has been associated with a significant increase in symptom relapse. If an overdose occurs call your doctor or 911. You may need urgent medical care. You may also contact the poison control center at . A specific treatment to reverse the effects of lithium does not exist, but there are treatments to decrease the effects of the medication. Only a doctor can determine if you require treatment. Avoid drinking alcohol or using illegal drugs while you are taking lithium. They may decrease the benefits (e.g., worsen your condition) and increase adverse effects (e.g., sedation) of the medication. Avoid low sodium diets and dehydration because this can increase the risk of lithium toxicity. Avoid over the counter and prescription pain medications that contain nonsteroidal anti-inflammatory medications (NSAIDS) such as ibuprofen (Motrin, Advil) or naproxen (Aleve, Naprosyn) because these medications can increase the risk of toxicity from lithium. Avoid excessive intake of caffeinated beverages, such as coffee, tea, cola or energy drinks, since these may decrease levels of lithium and decrease effectiveness of the medication. Discontinuing caffeine use may increase lithium levels. Consult your health care provider before reducing or stopping caffeine use. What are the possible side effects of lithium? Common side effects Headache Nausea or vomiting Diarrhea Dizziness or drowsiness Changes in appetite Hand tremors Dry mouth Increased thirst Increased urination Thinning of hair or hair loss Acne-like rash Rare/Serious side effects Signs of lithium toxicity include severe nausea and vomiting, severe hand tremors, confusion, vision changes, and unsteadiness while standing or walking. These symptoms need to be addressed immediately with a medical doctor to ensure your lithium level is not dangerously high. In rare cases, lithium may lead to a reversible condition known as diabetes insipidus. If this occurs you would notice a significant increase in thirst and how much fluid you drink and how much you urinate. Talk to your doctor if you notice you are urinating more frequently than usual. Are There Any Risks For Taking [place] For Long Periods Of Time? Hypothyroidism (low levels of thyroid hormone) may occur with long-term lithium use. Rare kidney problems have been associated with long-term use of lithium. The risk increases with high levels of lithium. Your doctor will monitor your kidney function at routine check-ups to ensure this does not occur. Summary of Black Box Warnings [place] Toxicity [place] toxicity is closely related to lithium blood levels and can occur at doses close to therapeutic levels; lithium levels should be monitored closely when starting the medication or if individuals experience side effects of the medication. Leonel Landa presents with worsening depressive symptoms, including irritability, anhedonia, and poor self-care, despite current treatment with lamotrigine and lithium. Major Depressive Disorder with mixed features Assessment: Patient reports a recent exacerbation of depressive symptoms, including irritability, anhedonia, and poor self-care (not showering or brushing teeth). These symptoms have worsened over the past couple of weeks. Current medication regimen includes lamotrigine 50 mg BID and lithium 150 mg. Patient denies recent manic episodes. The current presentation suggests inadequate control of depressive symptoms with the current medication regimen, necessitating adjustment. Plan: - Increase lithium to 300 mg extended-release PO qHS - Change from immediate-release to extended-release formulation to potentially decrease side effects - Continue lamotrigine 50 mg PO BID - Continue Vyvanse (dose not specified) - Continue lorazepam PRN for anxiety - Patient to send message in 10-14 days to report response to increased lithium dose - Follow-up to consider further lithium dose increases if needed Anxiety Assessment: Patient reports occasional use of lorazepam for anxiety management. Current anxiety levels are reported as not severe. Plan: - Continue lorazepam PRN for anxiety (dose not specified) Lifestyle management Assessment: Patient reports lack of purpose and unfulfillment in daily activities. Has been walking when weather permits. Plan: - Encourage continuation of walking for exercise when weather allows the note is transcribed using speech recognition software. It is a reflection of a visit with the patient. It might have some inaccuracy, including medication names and transcribing errors, though efforts have been made to correct them. 08/20/2024 Isaiah Landa, a patient with bipolar disorder, presents with recent onset of mild depressive symptoms and sleep disturbances, reporting overall improvement with current medication regimen. Bipolar Disorder Assessment: Patient reports overall improvement with current medication regimen, including lithium ER, lamotrigine, and Vraylar. Recent onset of mild depressive symptoms noted, with patient spending more time on the couch in the past couple of days. No significant irritability or anger reported. Patient and family have noticed improved morning interactions. Patient experienced a possible hypomanic episode recently, characterized by staying up late. Sleep disturbances persist, with patient waking up around 2:30 AM and having difficulty falling back asleep. Racing thoughts continue but are more manageable. Plan: - Increase lithium ER to 450 mg daily - Continue lamotrigine 25 mg, 2 tablets daily - Continue Vraylar 4.5 mg daily - Educate patient on the importance of sleep hygiene in mood disorder management - Monitor for changes in mood, particularly signs of hypomania or worsening depression - Follow up to assess response to medication adjustment Insomnia Assessment: Patient reports persistent sleep disturbances, waking up around 2:30 AM with difficulty falling back asleep. Currently prescribed trazodone 50 mg for insomnia but reports not using it regularly due to concerns about decreased effectiveness with habitual use and feeling tired upon waking even after 8 hours of sleep. Plan: - Continue trazodone 50 mg as needed for insomnia - Suggest trial of half tablet (25 mg) of trazodone if full dose causes excessive morning drowsiness - Reinforce importance of consistent sleep schedule and sleep hygiene practices Panic Disorder Assessment: Patient reports improvement in panic symptoms, with no recent use of as-needed lorazepam. Racing thoughts persist but are more manageable. Plan: - Continue lorazepam 0.5 mg daily as needed for panic symptoms - Encourage continued use of coping strategies for managing racing thoughts Binge Eating Disorder Assessment: Patient is currently prescribed Vyvanse 70 mg for binge eating disorder. No specific concerns or changes reported during this visit. Plan: - Continue Vyvanse 70 mg daily - Next refill due on the of the month Poor Self-Care Assessment: Patient acknowledges ongoing difficulty with maintaining regular showering habits, attributing this to feelings of low self-worth. Patient expresses awareness of the issue and reports working on improving self-care practices. Plan: - Encourage continued efforts to improve self-care routines - Explore underlying beliefs about self-worth in future sessions - Monitor progress in self-care activities the note is transcribed using speech recognition software. It is a reflection of a visit with the patient. It might have some inaccuracy, including medication names and transcribing errors, though efforts have been made to correct them. 09/21/2024 Isaiah Landa, a patient with a history of bipolar disorder and recent psychiatric hospitalizations, presents with worsening depressive symptoms including sadness and irritability. Bipolar Disorder, Current Episode Depressed Assessment: Patient reports a recent onset of depressive symptoms, including increased sadness and irritability. She states she could just feel it coming and that she just kind of fell off. The patient has a history of bipolar disorder with two psychiatric hospitalizations within the past year. Current medication regimen includes Vraylar, lamotrigine, lithium, Vyvanse, lorazepam, and trazodone. Patient reports good response to Vraylar 4.5 mg. Plan: - Continue Vraylar 4.5 mg - Continue lamotrigine 50 mg - Increase lithium ER from 450 mg to 600 mg at bedtime - Take two 300 mg ER tablets at the same time - Continue Vyvanse - Refill lorazepam - Continue trazodone - Monitor for improvement in depressive symptoms - Follow up in one month Insomnia Assessment: Patient reports difficulty falling asleep but states she has been sleeping like a baby once asleep. She expresses concern about morning side effects from trazodone and prefers to avoid it, opting instead to lay there a little bit extra to fall asleep. Plan: - Continue current sleep medication regimen - Educate on sleep hygiene techniques Vitamin D Deficiency Assessment: Patient reports a recent vitamin D level of approximately 4, which is significantly low. She has been on vitamin D supplementation for almost a month and states it has helped a lot with her energy levels. Patient believes she may need long-term supplementation due to chronically low levels. Plan: - Continue current vitamin D supplementation - Recheck vitamin D level next month - Consider long-term vitamin D supplementation based on follow-up results the note is transcribed using speech recognition software. It is a reflection of a visit with the patient. It might have some inaccuracy, including medication names and transcribing errors, though efforts have been made to correct them. 10/22/2024 Isaiah Landa presents with worsening depressive symptoms including increased sleep, crying, irritability, and anger, along with anxiety and mixed features of bipolar disorder. Bipolar Disorder with Mixed Features Assessment: Patient reports a sudden onset of depressive symptoms, including excessive sleep (up to 18 hours daily), increased crying, loss of appetite, and irritability. Mixed features are evident with restlessness, racing thoughts, and high heart rate. The patient is experiencing anxiety and has been using lorazepam more frequently. Current medications include Vraylar 4.5 mg, lithium ER 600 mg, and lamotrigine 50 mg daily. The patient reports feeling like the depression has hit me like a truck since the last visit, despite an increase in lithium dosage from 450 mg to 600 mg. The mixed episode is causing confusion for the patient, who expresses difficulty distinguishing between depression and anxiety symptoms. Plan: - Increase Vraylar to 6 mg daily - Continue lithium ER 600 mg daily - Continue lamotrigine 50 mg daily - Obtain lithium level (target range 0.6-1.2) - Lab work to be done at [facility] - Follow up in 2 weeks - Refill lamotrigine - Refill lorazepam Medication Management Assessment: Patient reports not taking Vyvanse during depressive episodes due to perceived lack of efficacy. The patient has been adherent to other medications with assistance from family members for bedtime doses. Trazodone has not been needed recently due to excessive sleep. Plan: - Continue current medications with dosage adjustments as noted above the note is transcribed using speech recognition software. It is a reflection of a visit with the patient. It might have some inaccuracy, including medication names and transcribing errors, though efforts have been made to correct them. 11/12/2024 Isaiah Landa, a patient with bipolar disorder, presents for follow-up reporting a recent manic episode possibly triggered by Vraylar, which has since stabilized, and current anxiety related to bankruptcy discussions. Bipolar Disorder Assessment: Patient reports experiencing a brief manic episode after starting Vraylar, characterized by insomnia, increased energy, and elevated mood lasting a few days. This episode has since resolved, and the patient now describes her mood as even-keeled with no current symptoms of depression or chirag. Sleep patterns have normalized, and the patient is engaging in daily activities. This presentation suggests the patient's bipolar disorder is currently stable on the current medication regimen. Plan: - Continue Vraylar 6 mg - Continue lamotrigine 25 mg twice daily - Continue [place] ER 300 mg, 2 tablets at bedtime (600 mg total) - Continue Vyvanse 70 mg daily for binge-eating disorder - Follow up in one month to ensure continued stability Anxiety Assessment: Patient reports experiencing some anxiety, which she attributes to ongoing discussions about bankruptcy. This situational anxiety appears to be a reasonable response to a significant life stressor rather than a manifestation of a primary anxiety disorder. Plan: - Continue lorazepam 0.5 mg daily as needed for anxiety - Refill lorazepam prescription Insomnia Assessment: Patient reports resolution of initial insomnia associated with Vraylar initiation. She states she is now sleeping fine and has not needed the as-needed sleep medication recently. Plan: - Continue trazodone 50 mg at bedtime as needed for sleep the note is transcribed using speech recognition software. It is a reflection of a visit with the patient. It might have some inaccuracy, including medication names and transcribing errors, though efforts have been made to correct them. Plan Of Treatment Future Test Test Name Order Date LITHIUM (613) 10/22/2024 Next Appt Details Provider Name:Tommy grady, 12/10/2024 01:30:00 PM, [address], [facility] [address], [place], [address], Insurance Providers Payer Name Payer Address Payer Phone Subscriber Number Group Number Insured Name Patient Relationship to Insured Coverage Start Date Coverage End Date [employer] [address] [place] [phone] [id number] LEONEL LANDA Self - patient is the insured Medical (General) History Medical History History ICD Code Problems: Binge eating disorder Bipolar affective disorder, current epis ode depression Bipolar affective disorder, current epis ode mixed Generalized anxiety disorder Insomnia 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
[2024-11-20 09:41] VITALS: BP 137/88; PULSE 96; RESP 16; TEMP 36.4; O2SAT 94
[2024-11-20 09:44] VITALS: BMI 56.4
[2024-11-20] MEDS: IRON SUCROSE COMPLEX 300 MG in SODIUM CHLORIDE 0.9% IV 235 ML 125 MG IVPB (10:06)
--- NOTE | 2024-11-20 12:15 | PC.NURSE ---
Patient here for transfusion, tolerated Iron transfusion well with no s/sx of adverse effects. Denies dizziness or distress. She was given education and next appointment, verbalized understanding of both. She ambulated out of room to elevator to exit building.
== END 2024-11-20 12:42 | disposition home or self-care (01) ==
PROVIDERS: PCP Family Medicine; Visit Provider Family Medicine
DX: D50.9 Iron deficiency anemia, unspecified (principal)
CPT/HCPCS: 96365; 96367; J1756; J7050

== ENCOUNTER 2024-11-27 10:25 | Outpatient (CLI) | payer OTHER, SELFPAY ==
--- OUTSIDE RECORDS SUMMARY | 2024-11-27 10:35 | XMS_ITS | Clinical Summary ---
Author Organization [facility] [employer] Address [address] [place] [address] Care Team Providers Care Rental Sales Associate Name Role Phone Dheeraj Lim MD Primary Care Provider [phone] Source Comments [facility] [employer],non-owned Affiliates and Associated Physician Practices is amultiple site organization consisting of ambulatory clinics and hospital sitesin [place], [place], [place] and [place]. This disclosure is being madepursuant to the Care Everywhere program and may not contain all information available regarding this patient. Last updated 18.[employer] Allergies No known active allergies Medications * [...] and heating? Not hard at all 07/25/2022 [facility] [place] [facility] - Occupational Stress [...] place to sleep or slept in a skilled nursing (including now)? 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
--- OUTSIDE RECORDS SUMMARY | 2024-11-27 10:36 | XMS_ITS | Patient Health Record ---
Author Organization [facility] [employer] [facility] Address [address] [place] [address] Care Team Providers Care Scowman Name Role Phone Dheeraj Lim MD Primary Care Provider Tommy Capone Unavailable [phone] Kevan Tapia Unavailable [phone] Allergies No Known Allergies Results Component Value Reference Range Notes UDT Reviewed date:09/22/2024 12:59:34 PM Interpretation: Performing Lab: Notes/Report: THC N 0 - 50 ng/ml Cocaine N 0 - 300 ng/ml Amphetamine P 0 - 1000 ng/ml Buprenorphine (BUP) N 0 - 10 ng/ml Secobarbital (Bar) N 0 - 300 ng/ml Oxazepam (BZO) N 0 - 300 ng/ml 0-nopfrwlmhd-6,3-ozggsqyv-6,3-diphenylpyrrolidine (DASHAWN P) N 0 - 300 ng/ml Methamphetamine (MET) N 0 - 1000 ng/ml Methylenedioxymethamphetamine (MDMA) N 0 - 500 ng/ml Morphine (MOP 300/[id number]) N 0 - 300 ng/ml Methadone (MTD) [...] Oxazepam (BZO) N 0 - 300 ng/ml 6-ksxczidooa-8,2-qqmiidka-7,3-diphenylpyrrolidine (DASHAWN P) N 0 - 300 ng/ml Methamphetamine (MET) N 0 - 1000 ng/ml Methylenedioxymethamphetamine (MDMA) N 0 - 500 ng/ml Morphine (MOP 300/[id number]) N 0 - 300 ng/ml Methadone (MTD) [...] Oxazepam (BZO) N 0 - 300 ng/ml 8-aipawsyzxl-6,2-vklgxqgd-0,3-diphenylpyrrolidine (DASHAWN P) N 0 - 300 ng/ml Methamphetamine (MET) N 0 - 1000 ng/ml Methylenedioxymethamphetamine (MDMA) N 0 - 500 ng/ml Morphine (MOP 300/[id number]) N 0 - 300 ng/ml Methadone (MTD) [...] Active Vraylar 6 mg 1 capsule Orally Onc e a day; Duration: 30 days Active lamoTRIgine 25 MG 2 tablets Orally onc e a day; Duration: 90 days Active Birdseye Carbonate ER 300 MG TAKE 2 TABLE TS BY MOUTH ONCE DAILY AT BEDTIME; Duration: 30 Active Lisdexamfetamine Dimesylate 70 MG 1 capsule in the morning Orally Once a day; Duration: 30 days 11/26/2024 Active medroxyPROGESTERone Acetate 150 MG/ML Intramuscular 08/21/2023 Active lamoTRIgine 25 MG 2 tablets Orally onc e a day; Duration: 30 days Not-Taking Immunizations Vaccine Route Administration Date Status Comme nts Influenza, seasonal, injecta ble, preservative free, 3 yrs and above Unknown 01/13/2011 Administered Meningococcal MCV4P Unknown 12/17/2008 Administered MMR Unknown 04/27/2015 Administered Moderna Covid-19 Vaccine 1st dose Unknown 07/01/2020 Ad ministered Moderna Covid-19 Vaccine 1st dose Unknown 07/29/2020 Ad ministered Novel [id number]-[id number], preservative free Unknown 04/27/2015 Administered Social History [...] Status Risk Notes Problem Generalized anxiety disorder (06221705) Generalized anxiety disorder (F41.1) Active confirmed Problem Insomnia disorder related to another mental disorder (37657926) Insomnia due to other mental disorder (F51.05) 4 Active confirmed Problem Binge eating disorder (220163357) Binge eating disorder (F50.81) 4 Active confirmed Problem Panic disorder (628570319) Panic disorder [episodic paroxysmal anxiety] without agoraphobia (F41.0) Active confirmed Problem Mixed bipolar I disorder (62365965) Bipolar affective disorder, mixed (F31.60) Active confirmed Problem Feeling suicidal (244993895) Passive suicidal ideations (R45.851) Active confirmed Problem Non-compliance (971170965) Non-compliance (Z91.199) Active confirmed Problem Bipolar affective disorder, currently manic, moderate (065591827) Bipolar affective disorder, currently manic, moderate (F31.12) [...] 11/12/2024 Encounters Encounter Location Date Provider Diagnosis [facility] [employer] [facility], [address] [facility] [address] [place] [address] 12/24/2023 Kevan Clubb Insomnia due to othe r mental disorder F51.05 ; Bipolar affective disorder, currently manic, moderate F31.12 and Non-compliance Z91.199 [facility] [email or web address] [facility] [address] [facility] [address] [place] [address] 12/25/2023 Tommy Dumont Panic disorder [episodic paroxysmal anxiety] without agoraphobia F41.0 ; Generalized anxiety disorder F41.1 ; Bipolar affective disorder, currently manic, moderate F31.12 and Insomnia due to other mental disorder F51.05 [employer] [facility] [address] [facility] [address] [place] [address] 01/16/2024 Tommy Dumont Panic disorder [episodic paroxysmal anxiety] without agoraphobia F41.0 ; Generalized anxiety disorder F41.1 ; Insomnia due to other mental disorder F51.05 and Bipolar affective disorder, mixed F31.60 [employer] [facility] [address] [place] [address] 02/17/2024 Tommy Dumont Panic disorder [episodic paroxysmal anxiety] without agoraphobia F41.0 ; Generalized anxiety disorder F41.1 ; Insomnia due to other mental disorder F51.05 ; Bipolar affective disorder, mixed F31.60 and Binge eating disorder, mild F50.810 [employer] [facility] [address] [place] [address] 03/17/2024 Tommy Dumont Panic disorder [episodic paroxysmal anxiety] without agoraphobia F41.0 ; Generalized anxiety disorder F41.1 ; Insomnia due to other mental disorder F51.05 ; Bipolar affective disorder, mixed F31.60 and Binge eating disorder, mild F50.810 [facility] [address] [place] [address] 04/14/2024 Tommy Dumont Panic disorder [episodic paroxysmal anxiety] without agoraphobia F41.0 ; Generalized anxiety disorder F41.1 ; Insomnia due to other mental disorder F51.05 ; Bipolar affective disorder, mixed F31.60 and Binge eating disorder, mild F50.810 [facility] [employer] [facility], [address] [place] [address] 06/01/2024 Kevanbarney [employer] Bipolar affective disorder, mixed F31.60 ; Passive suicidal ideations R45.851 ; Panic disorder [episodic paroxysmal anxiety] without agoraphobia F41.0 ; Generalized anxiety disorder F41.1 ; Insomnia due to other mental disorder F51.05 and Binge eating disorder, mild F50.810 [facility] [employer] [facility] [address] [place] [address] 06/08/2024 Tommy Dumont Panic disorder [episodic paroxysmal anxiety] without agoraphobia F41.0 ; Generalized anxiety disorder F41.1 ; Insomnia due to other mental disorder F51.05 ; Bipolar affective disorder, mixed F31.60 and Binge eating disorder, mild F50.810 [facility] [employer] [facility] [address] [place] [address] 07/21/2024 Tommy Dumont Bipolar affective disorder, mixed F31.60 ; Binge eating disorder, mild F50.810 ; Panic disorder [episodic paroxysmal anxiety] without agoraphobia F41.0 ; Generalized anxiety disorder F41.1 ; Insomnia due to other mental disorder F51.05 ; Encounter for screening for depression Z13.31 and Encounter for screening for cardiovascular disorders Z13.6 [facility] [email or web address] [facility] [address] [place] [address] 08/20/2024 Tommyjess Engela Negative depression screening Z13.31 ; Bipolar affective disorder, mixed F31.60 ; Binge eating disorder, mild F50.810 ; Panic disorder [episodic paroxysmal anxiety] without agoraphobia F41.0 ; Generalized anxiety disorder F41.1 ; Insomnia due to other mental disorder F51.05 ; Nicotine use Z72.0 ; Encounter for screening for cardiovascular disorders Z13.6 and Encounter for screening for depression Z13.31 [facility] [address] [facility] [address] [place] [address] 09/21/2024 Tommy Dumont Encounter for screen ing for depression Z13.31 ; Nicotine use Z72.0 ; Encounter for screening for cardiovascular disorders Z13.6 ; Bipolar affective disorder, mixed F31.60 ; Negative depression screening Z13.31 ; Binge eating disorder, mild F50.810 ; Panic disorder [episodic paroxysmal anxiety] without agoraphobia F41.0 ; Generalized anxiety disorder F41.1 and Insomnia due to other mental disorder F51.05 [facility] [address] [facility] [address] [place] [address] 10/22/2024 Tommy Dumont Bipolar affective disorder, mixed F31.60 ; Nicotine use Z72.0 ; Binge eating disorder, mild F50.810 ; Panic disorder [episodic paroxysmal anxiety] without agoraphobia F41.0 ; Generalized anxiety disorder F41.1 and Insomnia due to other mental disorder F51.[address] [facility] [address] [place] [address] 11/12/2024 Tommy Dumont Bipolar affective disorder, mixed F31.60 ; Nicotine use Z72.0 ; Binge eating disorder, mild F50.810 ; Panic disorder [episodic paroxysmal anxiety] without agoraphobia F41.0 ; Generalized anxiety disorder F41.1 and Insomnia due to other mental disorder F51.05 [facility] [place] [address] [facility] [address] [facility] [address] [place] [address] 12/24/2023 Tommy Dumont [address] [facility] [address] [place] [address] 06/01/2024 Kevan Regina [facility], [place] [address] [facility] [address] [place] [address] 11/26/2024 Tommy Dumont Binge eating disorde r, mild F50.810 [facility], [facility] [address] [place] [address] 12/16/2023 Tommy Dumont Binge eating disorde r F50.81 [facility], [facility] [address] [place] [address] 01/22/2024 Tommy Dumont [facility], [facility] [address] [place] [address] 02/04/2024 Tommy Dumont Bipolar affective disorder, mixed F31.60 [facility], [place] [address] [place] [address] 03/15/2024 Tommy Dumont [facility], [facility] [address] [place] [address] 04/11/2024 Tommy Dumont Binge eating disorde r, mild F50.810 [facility], [place] [address] [place] [address] 05/05/2024 Tommy Dumont Binge eating disorde r, mild F50.810 [facility], [place] [address] [place] [address] 06/29/2024 Tommy Dumont Binge eating disorde r, mild F50.810 [facility], [facility] [address] [place] [address] 07/30/2024 Tommy Dumont Binge eating disorde r, mild F50.810 [facility], [facility] [address] [place] [address] 08/31/2024 Tommy Dumont Binge eating disorde r, mild F50.810 [facility], [facility] [address] [place] [address] 09/16/2024 Tommy Dumont Bipolar affective disorder, mixed F31.60 [facility], [facility] [address] [place] [address] 09/24/2024 Tommy Dumont Binge eating disorde r, [...] one dose daily - Encourage patient to grape picker Vraylar prescription from the pharmacy - [...] Previously on Lamotrigine, discontinued during a psych cm stay 7. medication non-compliance - patient reports she did not grape picker Vraylar 1.5 mg po daily prescription [...] one dose daily - Encourage patient to grape picker Vraylar prescription from the pharmacy - [...] non-compliance - patient reports she did not grape picker Vraylar 1.5 mg po daily prescription [...] any current suicidal or homicidal ideation. Plan: 02/04/2024 Bipolar affective disorder, mixed (ICD-10 - [...] in the patient's ADHD symptoms. Check with [facility] for potential coverage of the medication. 5. Medication management: - Patient has switched to [facility] for medication pick-up and coverage. - Plan: Update the patient's pharmacy information to [facility] and ensure all prescriptions are sent to [...] in the patient's ADHD symptoms. Check with [facility] for potential coverage of the medication. 5. Medication management: - Patient has switched to [facility] for medication pick-up and coverage. - Plan: Update the patient's pharmacy information to [facility] and ensure all prescriptions are sent to the correct pharmacy. Monitor the patient's medication adherence during follow-up appointments. 04/11/2024 Binge eating disorder, mild (ICD-10 - [...] month to assess response to lamotrigine. - Switchman patient on the risk of rash with [...] of treatment with your doctor and caregivers. Birdseye has been associated with an increased risk of Ebstein's anomaly, a heart valve defect. Even though data suggest that the risk of Ebstein's anomaly from first trimester use of lithium is very low, an ultrasound of the heart is recommended at 16 to 20 weeks of gestation. Birdseye levels should be monitored monthly in early [...] usual. Are There Any Risks For Taking Birdseye For Long Periods Of Time? Hypothyroidism (low levels of thyroid hormone) may occur with long-term lithium use. Rare kidney problems have been associated with long-term use of lithium. The risk increases with high levels of lithium. Your doctor will monitor your kidney function at routine check-ups to ensure this does not occur. Summary of Black Box Warnings Birdseye Toxicity Birdseye toxicity is closely related to lithium blood [...] month to assess response to lamotrigine. - Switchman patient on the risk of rash with [...] Bipolar affective disorder, mixed (ICD-10 - F31.60) Birdseye may decrease the serum concentration of antipsychotic [...] Bipolar affective disorder, mixed (ICD-10 - F31.60) Birdseye may decrease the serum concentration of antipsychotic [...] develops. 11/12/2024 Nicotine use (ICD-10 - Z72.0) 11/26/2024 Binge eating disorder, mild (ICD-10 - F50.810) 03/17/2024 Panic disorder [episodic paroxysmal anxiety] without [...] on the patient's response to the medication. 01/16/2024 Generalized anxiety disorder (ICD-10 - F41.1) [...] and adjust treatment plans as needed. 01/16/2024 Insomnia due to other mental disorder [...] and adjust treatment plans as needed. 03/17/2024 Generalized anxiety disorder (ICD-10 - F41.1) [...] on the patient's response to the medication. 11/12/2024 Binge eating disorder, mild (ICD-10 - [...] month to assess response to lamotrigine. - Switchman patient on the risk of rash with [...] month to assess response to lamotrigine. - Switchman patient on the risk of rash with [...] monitor anxiety levels, and evaluate sleep quality. 02/17/2024 Insomnia due to other mental disorder [...] in the patient's ADHD symptoms. Check with [facility] for potential coverage of the medication. 5. Medication management: - Patient has switched to [facility] for medication pick-up and coverage. - Plan: Update the patient's pharmacy information to [facility] and ensure all prescriptions are sent to the correct pharmacy. Monitor the patient's medication adherence during follow-up appointments. 12/25/2023 Bipolar affective disorder, currently manic, moderate [...] one dose daily - Encourage patient to grape picker Vraylar prescription from the pharmacy - [...] non-compliance - patient reports she did not grape picker Vraylar 1.5 mg po daily prescription [...] any current suicidal or homicidal ideation. Plan: 04/14/2024 Insomnia due to other mental disorder [...] month to assess response to lamotrigine. - Switchman patient on the risk of rash with [...] monitor anxiety levels, and evaluate sleep quality. 02/17/2024 Bipolar affective disorder, mixed (ICD-10 - [...] in the patient's ADHD symptoms. Check with [facility] for potential coverage of the medication. 5. Medication management: - Patient has switched to [facility] for medication pick-up and coverage. - Plan: Update the patient's pharmacy information to [facility] and ensure all prescriptions are sent to the correct pharmacy. Monitor the patient's medication adherence during follow-up appointments. 06/08/2024 Insomnia due to other mental disorder [...] month to assess response to lamotrigine. - Switchman patient on the risk of rash with [...] 06/01/2024 Generalized anxiety disorder (ICD-10 - F41.1) 07/21/2024 Generalized anxiety disorder (ICD-10 - F41.1) [...] (ICD-10 - F41.0) lorazepam 0.5mg daily prn 03/17/2024 Insomnia due to other mental disorder [...] on the patient's response to the medication. 01/16/2024 Bipolar affective disorder, mixed (ICD-10 - [...] and adjust treatment plans as needed. 03/17/2024 Bipolar affective disorder, mixed (ICD-10 - [...] on the patient's response to the medication. 10/22/2024 Panic disorder [episodic paroxysmal anxiety] without [...] of the serious side effect develops. 08/20/2024 Generalized anxiety disorder (ICD-10 - F41.1) 07/21/2024 Insomnia due to other mental disorder [...] month to assess response to lamotrigine. - Switchman patient on the risk of rash with [...] anxiety levels, and evaluate sleep quality. 06/01/2024 Insomnia due to other mental disorder [...] month to assess response to lamotrigine. - Switchman patient on the risk of rash with [...] monitor anxiety levels, and evaluate sleep quality. 02/17/2024 Binge eating disorder, mild (ICD-10 - [...] in the patient's ADHD symptoms. Check with [facility] for potential coverage of the medication. 5. Medication management: - Patient has switched to [facility] for medication pick-up and coverage. - Plan: Update the patient's pharmacy information to [facility] and ensure all prescriptions are sent to the correct pharmacy. Monitor the patient's medication adherence during follow-up appointments. 04/14/2024 Binge eating disorder, mild (ICD-10 - [...] month to assess response to lamotrigine. - Switchman patient on the risk of rash with [...] anxiety levels, and evaluate sleep quality. 06/01/2024 Binge eating disorder, mild (ICD-10 - F50.810) 06/08/2024 Binge eating disorder, mild (ICD-10 - [...] month to assess response to lamotrigine. - Switchman patient on the risk of rash with [...] for screening for depression (ICD-10 - Z13.31) 08/20/2024 Insomnia due to other mental disorder (ICD-10 - F51.05) 09/21/2024 Negative depression screening (ICD-10 - Z13.31) 10/22/2024 Generalized anxiety disorder (ICD-10 - F41.1) 11/12/2024 Insomnia due to other mental disorder (ICD-10 - F51.05) 03/17/2024 Binge eating disorder, mild (ICD-10 - [...] on the patient's response to the medication. 10/22/2024 Insomnia due to other mental disorder (ICD-10 - F51.05) 09/21/2024 Binge eating disorder, mild (ICD-10 - F50.810) 08/20/2024 Nicotine use (ICD-10 - Z72.0) 07/21/2024 Encounter for screening for cardiovascular disorders (ICD-10 - Z13.6) 08/20/2024 Encounter for screening for cardiovascular disorders (ICD-10 - Z13.6) 09/21/2024 Panic disorder [episodic paroxysmal anxiety] without agoraphobia (ICD-10 - F41.0) lorazepam 0.5mg daily prn 08/20/2024 Encounter for screening for depression (ICD-10 [...] one dose daily - Encourage patient to grape picker Vraylar prescription from the pharmacy - [...] non-compliance - patient reports she did not grape picker Vraylar 1.5 mg po daily prescription [...] and July 2022. - Plan: a. Initiate Birdseye 150 mg for one week b. Monitor [...] by primary psychiatric care provider. b. Add Birdseye 150 mg for one week. c. Reassess during follow-up appointment. 4. Sleep Disturbance - Patient reports oversleeping, approximately 18 to 20 hours per day. - Plan: Monitor sleep patterns and consider adjusting medications if needed during follow-up. - encouraged sleep hygiene. 5. Suicidal Ideation - Patient reports passive suicidal thoughts without plan or intent. - Plan: a. Provide crisis hotline number (402). b. Encourage patient to seek help if [...] Plan: a. Continue current medications. b. Add Birdseye 150 mg for one week. c. Reassess medication effectiveness during follow-up. 06/08/2024 Other 1. Major Depressive Disorder: - Patient reported a recent episode of severe depression that led to an emergency clinic visit. - Birdseye 150 mg once daily was initiated for a week, with significant improvement in depressive symptoms. - Patient is currently feeling well and functioning better. Plan: - Continue Birdseye 150 mg once daily. - Monitor for [...] month to assess response to lamotrigine. - Switchman patient on the risk of rash with [...] of treatment with your doctor and caregivers. Birdseye has been associated with an increased risk of Ebstein's anomaly, a heart valve defect. Even though data suggest that the risk of Ebstein's anomaly from first trimester use of lithium is very low, an ultrasound of the heart is recommended at 16 to 20 weeks of gestation. Birdseye levels should be monitored monthly in early [...] usual. Are There Any Risks For Taking Birdseye For Long Periods Of Time? Hypothyroidism (low levels of thyroid hormone) may occur with long-term lithium use. Rare kidney problems have been associated with long-term use of lithium. The risk increases with high levels of lithium. Your doctor will monitor your kidney function at routine check-ups to ensure this does not occur. Summary of Black Box Warnings Birdseye Toxicity Birdseye toxicity is closely related to lithium blood [...] - Lab work to be done at [facility] - Follow up in 2 weeks - [...] lamotrigine 25 mg twice daily - Continue Birdseye ER 300 mg, 2 tablets at bedtime [...] Details Provider Name:Tommy grady, 12/10/2024 01:30:00 PM, [address], [facility], [place], [address], Insurance Providers Payer Name Payer Address Payer Phone Subscriber Number Group Number Insured Name Patient Relationship to Insured Coverage Start Date Coverage End Date [employer] [address] [place] [address] [id number] LEONEL LANDA Self - patient is the insured Medical (General) History Medical History History ICD Code Problems: Binge eating disorder Bipolar affective disorder, current epis ode depression Bipolar affective disorder, current epis ode mixed Generalized anxiety disorder Insomnia disorder related to another men francy disorder Malaise and fatigue Panic disorder Vitamin D deficiency Surgical History Surgery Date(Month/Year) Removal of gallbladder (96377) Removal of gallbladder (09980) 7 Hospitalization History Reason Date(Month/Year) inpatient psych hospitalization- [facility] 08/02 22 inpatient psych hospitalization- [facility] 08/02 22
[2024-11-27 10:54] VITALS: BP 165/90; PULSE 102; RESP 16; TEMP 36.6; O2SAT 97; BMI 55.0
--- NOTE | 2024-11-27 11:00 | PC.NURSE ---
patient tolearted IV start well. Here for Venofer infusion. sitting in chair resting, call light provided.
[2024-11-27] MEDS: IRON SUCROSE COMPLEX 300 MG in SODIUM CHLORIDE 0.9% IV 235 ML 125 MG IVPB (11:02)
--- NOTE | 2024-11-27 13:10 | PC.NURSE ---
Patient tolerated Venofer well. IV site removed, tip intact. Dressing applied to site. Patient provided with discharge instructions. Denies any questions. Left floor ambulatory.
== END 2024-11-27 13:10 | disposition home or self-care (01) ==
PROVIDERS: PCP Family Medicine; Visit Provider Family Medicine
DX: D50.9 Iron deficiency anemia, unspecified (principal)
CPT/HCPCS: 96365; 96366; J1756; J7050

== ENCOUNTER 2024-12-02 08:28 | Outpatient (CLI) | payer OTHER, SELFPAY ==
--- OUTSIDE RECORDS SUMMARY | 2024-12-02 08:32 | XMS_ITS | Patient Health Record ---
Author Organization [facility] [employer] [facility] Address [address] [place] [address] Care Team Providers Care Furnace Attendant Name Role Phone Dheeraj Lim MD Primary Care Provider Tommy Capone Unavailable [phone] Kevan Tapia Unavailable [phone] Allergies No Known Allergies Results Component Value Reference Range Notes UDT Reviewed date:06/08/2024 04:10:36 PM Interpretation: Performing Lab: Notes/Report: THC N 0 - 50 ng/ml Cocaine N 0 - 300 ng/ml Amphetamine N 0 - 1000 ng/ml Buprenorphine (BUP) N 0 - 10 ng/ml Secobarbital (Bar) N 0 - 300 ng/ml Oxazepam (BZO) N 0 - 300 ng/ml 3-ijnijzxsax-2,2-zmzucsdj-2,3-diphenylpyrrolidine (DASHAWN P) N 0 - 300 ng/ml Methamphetamine (MET) N 0 - 1000 ng/ml Methylenedioxymethamphetamine (MDMA) N 0 - 500 ng/ml Morphine (MOP 300/ZCW1002) N 0 - 300 ng/ml Methadone (MTD) [...] Oxazepam (BZO) N 0 - 300 ng/ml 0-xrupzwgsia-7,4-zkhrdhkx-4,3-diphenylpyrrolidine (DASHAWN P) N 0 - 300 ng/ml Methamphetamine (MET) N 0 - 1000 ng/ml Methylenedioxymethamphetamine (MDMA) N 0 - 500 ng/ml Morphine (MOP 300/CJS7332) N 0 - 300 ng/ml Methadone (MTD) N 0 - 300 ng/ml Phencyclidine (PCP) N 0 - 25 ng/ml Nortriptyline (TCA) N 0 - 1000 ng/ml Oxycodone N 0 - 300 ng/ml UDT Reviewed date:09/22/2024 12:59:34 PM Interpretation: Performing Lab: Notes/Report: THC N 0 - 50 ng/ml Cocaine N 0 - 300 ng/ml Amphetamine P 0 - 1000 ng/ml Buprenorphine (BUP) N 0 - 10 ng/ml Secobarbital (Bar) N 0 - 300 ng/ml Oxazepam (BZO) N 0 - 300 ng/ml 0-abmmutdahb-0,8-ziiqknxz-4,3-diphenylpyrrolidine (DASHAWN P) N 0 - 300 ng/ml Methamphetamine (MET) N 0 - 1000 ng/ml Methylenedioxymethamphetamine (MDMA) N 0 - 500 ng/ml Morphine (MOP 300/ORR0099) N 0 - 300 ng/ml Methadone (MTD) N 0 - 300 ng/ml Phencyclidine (PCP) N 0 - 25 ng/ml Nortriptyline (TCA) N 0 - 1000 ng/ml Oxycodone N 0 - 300 ng/ml x N 0 - 300 ng/ml Reason For Referral No Information Medications Medication SIG (Take, Route, Frequency, Duration) Notes Start Date End Date Status LORazepam 0.5 MG Tablet 1 tablet Oral Once a day; Duration: 30 days As needed 11/12/2024 Active traZODone HCl 50 MG Tablet 1 tablet at bedtime Oral Once a day; Duration: 30 days As needed Active Vraylar 6 mg Capsule 1 capsule Orally On ce a day; Duration: 30 days Active lamoTRIgine 25 MG Tablet 2 tablets Orall y once a day; Duration: 90 days Active Caro Carbonate ER 300 MG Tablet Extended Release TAKE 2 TABLETS BY MOUTH ONCE DAILY AT BEDTIME; Duration: 30 Active Lisdexamfetamine Dimesylate 70 MG Capsule 1 capsule in the morning Orally Once a day; Duration: 30 days 11/26/2024 Active medroxyPROGESTERone Acetate 150 MG/ML Suspension Intramuscular 08/21/2023 Active lamoTRIgine 25 MG Tablet 2 tablets Orall y once a day; Duration: 30 days Not-Taking Immunizations Vaccine Route Administration Date Status Comme nts Influenza, seasonal, injecta ble, preservative free, 3 yrs and above Unknown 01/13/2011 Administered Meningococcal MCV4P Unknown 12/17/2008 Administered MMR Unknown 04/27/2015 Administered Moderna Covid-19 Vaccine 1st dose Unknown 07/01/2020 Ad ministered Moderna Covid-19 Vaccine 1st dose Unknown 07/29/2020 Ad ministered Novel Xvyfzuabx-V4V2-69, preservative free Unknown 04/27/2015 Administered Social History Tobacco Use: Social History Observation Description Date Details (start date - stop date) Unknown Sex Assigned At : Social History Observation Description Sex Assigned At Female Social History Miscellaneous: Social Info Question Answer Notes Advance Care Planning Are you your own decision-maker Yes Do you have Power of [employer] [employer] [facility] or [facility]? No Drug/Alcohol: Social Info Question Answer Notes AUDIT-C (Standard) Points 3 Interpretation Positive Did you have a drink contain ing alcohol in the past year? Yes How often did you have six or more drinks on one occasion in the past year? Less than monthly (1 point) How many drinks did you have on a typical day when you were drinking in the past year? 1 or 2 drinks (0 point) How often did you have a drink containing alcohol in the past year? 2 to 4 times a month (2 points) Tobacco Use: Social Info Question Answer Notes Tobacco Control (Standard) Tobacco use: Uses tobacco in other forms Additional Details Category Social Info Options Details Migrated Social History Migrated Social History Alcohol Intake: Occasional 04/27/2020,Tobacco Years: Former smoker 04/27/2020,Smoking Status: 5 04/29/2023 Problems Problem Type SNOMED Code ICD Code Onset Dates Problem Status W/U Status Risk Notes Problem Generalized anxiety disorder (11710027) Generalized anxiety disorder (F41.1) Active confirmed Problem Insomnia disorder related to another mental disorder (04767809) Insomnia due to other mental disorder (F51.05) 4 Active confirmed Problem Binge eating disorder (487865743) Binge eating disorder (F50.81) 4 Active confirmed Problem Panic disorder (936447572) Panic disorder [episodic paroxysmal anxiety] without agoraphobia (F41.0) Active confirmed Problem Mixed bipolar I disorder (32075278) Bipolar affective disorder, mixed (F31.60) Active confirmed Problem Feeling suicidal (259664822) Passive suicidal ideations (R45.851) Active confirmed Problem Non-compliance (547258599) Non-compliance (Z91.199) Active confirmed Problem Bipolar affective disorder, currently manic, moderate (430024257) Bipolar affective disorder, currently manic, moderate (F31.12) [...] 11/12/2024 Encounters Encounter Location Date Provider Diagnosis [facility], [facility] [address] [address] 12/24/2023 Kevan Clubb Insomnia due to othe r mental disorder F51.05 ; Bipolar affective disorder, currently manic, moderate F31.12 and Non-compliance Z91.199 [employer] [address] [address] 12/25/2023 Tommy Dumont Panic disorder [episodic paroxysmal anxiety] without agoraphobia F41.0 ; Generalized anxiety disorder F41.1 ; Bipolar affective disorder, currently manic, moderate F31.12 and Insomnia due to other mental disorder F51.05 [facility] [address] [facility] [address] [place] [address] 01/16/2024 Tommy Dumont Panic disorder [episodic paroxysmal anxiety] without agoraphobia F41.0 ; Generalized anxiety disorder F41.1 ; Insomnia due to other mental disorder F51.05 and Bipolar affective disorder, mixed F31.60 [facility] [employer], [facility] [address] [place] [address] 02/17/2024 Tommy Dumont Panic disorder [episodic paroxysmal anxiety] without agoraphobia F41.0 ; Generalized anxiety disorder F41.1 ; Insomnia due to other mental disorder F51.05 ; Bipolar affective disorder, mixed F31.60 and Binge eating disorder, mild F50.810 [facility] [employer] [facility] [address] [place] [address] 03/17/2024 Tommy Dumont Panic disorder [episodic paroxysmal anxiety] without agoraphobia F41.0 ; Generalized anxiety disorder F41.1 ; Insomnia due to other mental disorder F51.05 ; Bipolar affective disorder, mixed F31.60 and Binge eating disorder, mild F50.810 [facility] [employer] [facility] [address] [place] [address] 04/14/2024 Tommy Dumont Panic disorder [episodic paroxysmal anxiety] without agoraphobia F41.0 ; Generalized anxiety disorder F41.1 ; Insomnia due to other mental disorder F51.05 ; Bipolar affective disorder, mixed F31.60 and Binge eating disorder, mild F50.810 [facility] [employer] [facility], [facility] [address] [place] [address] 06/01/2024 Kevanbarney Taverasb Bipolar affective disorder, mixed F31.60 ; Passive suicidal ideations R45.851 ; Panic disorder [episodic paroxysmal anxiety] without agoraphobia F41.0 ; Generalized anxiety disorder F41.1 ; Insomnia due to other mental disorder F51.05 and Binge eating disorder, mild F50.810 [facility] [employer] [facility] [address] [place] [address] 06/08/2024 Tommy Dumont Panic disorder [episodic paroxysmal anxiety] without agoraphobia F41.0 ; Generalized anxiety disorder F41.1 ; Insomnia due to other mental disorder F51.05 ; Bipolar affective disorder, mixed F31.60 and Binge eating disorder, mild F50.810 [facility] [employer], [facility] [address] [place] [address] 07/21/2024 Tommy Dumont Bipolar affective disorder, mixed F31.60 ; Binge eating disorder, mild F50.810 ; Panic disorder [episodic paroxysmal anxiety] without agoraphobia F41.0 ; Generalized anxiety disorder F41.1 ; Insomnia due to other mental disorder F51.05 ; Encounter for screening for depression Z13.31 and Encounter for screening for cardiovascular disorders Z13.6 [facility] [employer] [place] [address] [place] [address] 08/20/2024 Tommy Dumont Negative depression screening Z13.31 ; Bipolar affective disorder, mixed F31.60 ; Binge eating disorder, mild F50.810 ; Panic disorder [episodic paroxysmal anxiety] without agoraphobia F41.0 ; Generalized anxiety disorder F41.1 ; Insomnia due to other mental disorder F51.05 ; Nicotine use Z72.0 ; Encounter for screening for cardiovascular disorders Z13.6 and Encounter for screening for depression Z13.31 [facility] [employer] [place] [address] [facility] [address] [place] [address] 09/21/2024 Tommy Dumont Encounter for screen ing for depression Z13.31 ; Nicotine use Z72.0 ; Encounter for screening for cardiovascular disorders Z13.6 ; Bipolar affective disorder, mixed F31.60 ; Negative depression screening Z13.31 ; Binge eating disorder, mild F50.810 ; Panic disorder [episodic paroxysmal anxiety] without agoraphobia F41.0 ; Generalized anxiety disorder F41.1 and Insomnia due to other mental disorder F51.05 [facility] [employer] [facility] [address] [facility] [address] [place] [address] 10/22/2024 Tommy Dumont Bipolar affective disorder, mixed F31.60 ; Nicotine use Z72.0 ; Binge eating disorder, mild F50.810 ; Panic disorder [episodic paroxysmal anxiety] without agoraphobia F41.0 ; Generalized anxiety disorder F41.1 and Insomnia due to other mental disorder F51.05 [facility] [employer] [facility] [address] [facility] [address] [place] [address] 11/12/2024 Tommy Dumont Bipolar affective disorder, mixed F31.60 ; Nicotine use Z72.0 ; Binge eating disorder, mild F50.810 ; Panic disorder [episodic paroxysmal anxiety] without agoraphobia F41.0 ; Generalized anxiety disorder F41.1 and Insomnia due to other mental disorder F51.05 [facility], [facility] [address] [place] [address] 12/24/2023 Tommy Dumont [facility], [facility] [address] [place] [address] 06/01/2024 Kevan Clubb [facility], [facility] [address] [place] [address] 11/26/2024 Tommy Dumont Binge eating disorde r, mild F50.810 [facility], [facility] [address] [place] [address] 12/16/2023 Tommy Dumont Binge eating disorde r F50.81 [facility], [facility] [address] [place] [address] 01/22/2024 Tommy Dumont [facility], [facility] [address] [place] [address] 02/04/2024 Tommy Dumont Bipolar affective disorder, mixed F31.60 [facility], [facility] [address] [place] [address] 03/15/2024 Tommy Dumont [facility], [facility] [address] [place] [address] 04/11/2024 Tommy Dumont Binge eating disorde r, mild F50.810 [facility], [facility] [address] [place] [address] 05/05/2024 Tommy Dumont Binge eating disorde r, mild F50.810 [facility], [facility] [address] [place] [address] 06/29/2024 Tommy Dumont Binge eating disorde r, mild F50.810 [facility], [facility] [address] [place] [address] 07/30/2024 Tommy Dumont Binge eating disorde r, mild F50.810 [facility], [facility] [address] [place] [address] 08/31/2024 Tommy Dumont Binge eating disorde r, mild F50.810 [facility], [facility] [address] [place] [address] 09/16/2024 Tommy Dumont Bipolar affective disorder, mixed F31.60 [employer] [address] [place] [address] 09/24/2024 Tommy Dumont Binge eating disorde r, [...] one dose daily - Encourage patient to pickle pumper Vraylar prescription from the pharmacy - Patient [...] non-compliance - patient reports she did not pickle pumper Vraylar 1.5 mg po daily prescription from [...] one dose daily - Encourage patient to pickle pumper Vraylar prescription from the pharmacy - Patient [...] non-compliance - patient reports she did not pickle pumper Vraylar 1.5 mg po daily prescription from [...] Plan: Update the patient's pharmacy information to [facility] and ensure all prescriptions are sent [...] Plan: Update the patient's pharmacy information to [facility] and ensure all prescriptions are sent [...] month to assess response to lamotrigine. 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 Caro has been associated with an increased risk of Ebstein's anomaly, a heart valve defect. Even though data suggest that the risk of Ebstein's anomaly from first trimester use of lithium is very low, an ultrasound of the heart is recommended at 16 to 20 weeks of gestation. Caro levels should be monitored monthly in early [...] usual. Are There Any Risks For Taking Caro For Long Periods Of Time? Hypothyroidism (low levels of thyroid hormone) may occur with long-term lithium use. Rare kidney problems have been associated with long-term use of lithium. The risk increases with high levels of lithium. Your doctor will monitor your kidney function at routine check-ups to ensure this does not occur. Summary of Black Box Warnings Caro Toxicity Caro toxicity is closely related to lithium blood [...] month to assess response to lamotrigine. 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 Check with [facility] for potential coverage of the medication. 5. Medication management: - Patient has switched to [facility] for medication pick-up and coverage. - Plan: Update the patient's pharmacy information to [facility] and ensure all prescriptions are sent [...] one dose daily - Encourage patient to pickle pumper Vraylar prescription from the pharmacy - Patient [...] non-compliance - patient reports she did not pickle pumper Vraylar 1.5 mg po daily prescription from [...] in the patient's ADHD symptoms. Check with [facility] for potential coverage of the medication. 5. Medication management: - Patient has switched to [facility] for medication pick-up and coverage. - Plan: Update the patient's pharmacy information to [facility] and ensure all prescriptions are sent [...] month to assess response to lamotrigine. 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 Check with [facility] for potential coverage of the medication. 5. Medication management: - Patient has switched to [facility] for medication pick-up and coverage. - Plan: Update the patient's pharmacy information to [facility] and ensure all prescriptions are sent [...] month to assess response to lamotrigine. 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 Spoke with UBALDO Tvaeras about patient updates. 1. Bipolar disorder, currently in manic phase - Continue Paxil as prescribed - Discontinue Vyvanse temporarily due to current manic state - Initiate Vraylar; patient provided with a sample and instructed to take one dose immediately, then continue with one dose daily - Encourage patient to pickle pumper Vraylar prescription from the pharmacy - Patient [...] non-compliance - patient reports she did not pickle pumper Vraylar 1.5 mg po daily prescription from [...] and July 2022. - Plan: a. Initiate Caro 150 mg for one week b. Monitor [...] by primary psychiatric care provider. b. Add Caro 150 mg for one week. c. Reassess during follow-up appointment. 4. Sleep Disturbance - Patient reports oversleeping, approximately 18 to 20 hours per day. - Plan: Monitor sleep patterns and consider adjusting medications if needed during follow-up. - encouraged sleep hygiene. 5. Suicidal Ideation - Patient reports passive suicidal thoughts without plan or intent. - Plan: a. Provide crisis hotline number (093). b. Encourage patient to seek help if [...] Plan: a. Continue current medications. b. Add Caro 150 mg for one week. c. Reassess medication effectiveness during follow-up. 06/08/2024 Other 1. Major Depressive Disorder: - Patient reported a recent episode of severe depression that led to an emergency clinic visit. - Caro 150 mg once daily was initiated for a week, with significant improvement in depressive symptoms. - Patient is currently feeling well and functioning better. Plan: - Continue Caro 150 mg once daily. - Monitor for [...] month to assess response to lamotrigine. 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 Caro has been associated with an increased risk of Ebstein's anomaly, a heart valve defect. Even though data suggest that the risk of Ebstein's anomaly from first trimester use of lithium is very low, an ultrasound of the heart is recommended at 16 to 20 weeks of gestation. Caro levels should be monitored monthly in early [...] usual. Are There Any Risks For Taking Caro For Long Periods Of Time? Hypothyroidism (low levels of thyroid hormone) may occur with long-term lithium use. Rare kidney problems have been associated with long-term use of lithium. The risk increases with high levels of lithium. Your doctor will monitor your kidney function at routine check-ups to ensure this does not occur. Summary of Black Box Warnings Caro Toxicity Caro toxicity is closely related to lithium blood [...] been made to correct them. 08/20/2024 Isaiah aLnda, a patient with bipolar disorder, presents with [...] - Lab work to be done at [facility] - Follow up in 2 weeks [...] lamotrigine 25 mg twice daily - Continue Caro ER 300 mg, 2 tablets at bedtime [...] Details Provider Name:Tommy grady, 12/10/2024 01:30:00 PM, [address], [place], [address], Insurance Providers Payer Name Payer Address Payer Phone Subscriber Number Group Number Insured Name Patient Relationship to Insured Coverage Start Date Coverage End Date [employer] [address] [place] [address] [id number] LEONEL LANDA Self - patient is the insured Medical (General) History Medical History History ICD Code Problems: Binge eating disorder Bipolar affective disorder, current epis ode depression Bipolar affective disorder, current epis ode mixed Generalized anxiety disorder Insomnia disorder related to another men francy disorder Malaise and fatigue Panic disorder Vitamin D deficiency Surgical History Surgery Date(Month/Year) Removal of gallbladder (05995) Removal of gallbladder (81568) 7 Hospitalization History Reason Date(Month/Year) inpatient psych hospitalization- [facility] 08/02 22 inpatient psych hospitalization- [facility] 08/02 22
--- OUTSIDE RECORDS SUMMARY | 2024-12-02 08:32 | XMS_ITS | Clinical Summary ---
Author Organization [facility] [employer] Address [address] [place] [address] Care Team Providers Care Heater Furnace Name Role Phone Dheeraj Lim MD Primary Care Provider [phone] Source Comments [facility],non-owned Affiliates and Associated Physician Practices is amultiple site organization consisting of ambulatory clinics and hospital sitesin [place], [place], [place] and [place]. This disclosure is being madepursuant to the Care Everywhere program and may not contain all information available regarding this patient. Last updated 18.[employer] [facility] Allergies No known active allergies Medications * [...] and heating? Not hard at all 07/25/2022 [facility] [employer] [facility] [employer] - Occupational Stress [...] place to sleep or slept in a correction (including now)? 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
[2024-12-02 08:40] VITALS: BP 129/80; PULSE 96; RESP 18; TEMP 36.1; O2SAT 98
[2024-12-02] MEDS: IRON SUCROSE COMPLEX 300 MG in SODIUM CHLORIDE 0.9% IV 235 ML 125 MG IVPB (08:58)
[2024-12-02 11:02] VITALS: BP 128/72
--- NOTE | 2024-12-02 11:04 | PC.NURSE ---
Patient tolerated last infusion well, No adverse effectes noted. ambulated out of room to elevator without difficulty.
== END 2024-12-02 08:29 | disposition home or self-care (01) ==
PROVIDERS: PCP Family Medicine; Visit Provider Family Medicine
DX: D50.9 Iron deficiency anemia, unspecified (principal)
CPT/HCPCS: 96365; 96366; J1756; J7050